=== PATIENT | female | born 1975 | race African-American/Black ===

== ENCOUNTER 2019-03-11 11:22 | Inpatient (IN) | payer MEDICAID ==
[2019-03-11] VITALS (8 sets, daily range): BP systolic 92–110; BP diastolic 38–76
[~2019-03-11] VITALS: Ht 160 cm; Wt 88.0 kg
[2019-03-11 14:22] LABS: MEAN CORPUSCULAR HEMOGLOBIN 35.4 pg (28.0-32.0); MEAN CORPUSCULAR VOLUME 105.9 fL (81.0-99.0); MEAN PLATELET VOLUME 7.7 fl (7.4-10.4); PLATELET 174 x1000/uL (130-400); RED BLOOD CELL COUNT 1.74 mill/uL (4.2-5.4); RED CELL DISTRIBUTION WIDTH 16.6 % (11.6-14.6)
[2019-03-11 14:23] LABS: CLARITY URINE TURBID (CLEAR); COLOR URINE ORANGE (YELLOW); KETONES URINE 1+ (NEGATIVE); LEUKOCYTE ESTERASE URINE 1+ (NEGATIVE); NITRITE URINE POSITIVE (NEGATIVE); OCCULT BLOOD URINE 2+ (NEGATIVE); PH URINE 5.5 (4.5-8.0); PROTEIN URINE 1+ (NEGATIVE); SPECIFIC GRAVITY URINE 1.021 (1.005-1.030)
[2019-03-11 14:24] LABS: HEMATOCRIT. 18.4 % (36.0-48.0); HEMOGLOBIN. 6.2 g/dL (12.0-16.0)
[2019-03-11 14:30] LABS: CHLORIDE 94 mEq/L (98-107)
[2019-03-11] MEDS ORDERED: OCTREOTIDE 1,000 MCG in SODIUM CHLORIDE 0.9% 100 ML IV ONE (14:30)
[2019-03-11] MEDS ORDERED: PANTOPRAZOLE SODIUM 40 MG/VIAL IV NR (14:30)
[2019-03-11] MEDS ORDERED: CEFTRIAXONE 1 G PREMIX 50 ML IV ONE (14:30)
[2019-03-11] MEDS ORDERED: OCTREOTIDE ACETATE 50 MCG/ML 1ML IV NR (14:30)
[2019-03-11] MEDS ORDERED: ONDANSETRON HCL 4MG/2ML INJ IV ONE (14:30)
[2019-03-11 14:31] LABS: INR 1.8; PARTIAL THROMBOPLASTIN TIME 30.8 sec (23.4-31.0); PROTHROMBIN TIME 18.3 sec (9.6-11.0)
[2019-03-11 14:33] LABS: ETHANOL BLOOD < 10 mg/dL; HCG SCREEN NEGATIVE
[2019-03-11 14:34] LABS: BG BASE EXCESS -3.8 mmol/L (-2.0-2.0); BG DEOXYHEMOGLOBIN 2.3 % (0.0-5.0); BG FRACTION INSPIRED OXYGEN 21; BG HCO3 ACT 19.4 mmol/L (22.0-26.0); BG METHEMOGLOBIN 0.1 % (0.0-1.5); BG OXYGEN SATURATION 97.7 % (92.0-98.5); BG OXYHEMOGLOBIN 96.6 % (94.0-97.0); BG PCO2 27.2 mmHg (35.0-45.0); BG PH 7.471 (7.350-7.450); BG PO2 112.7 mmHg (75.0-100.0); BG SAMPLE SITE RIGHT BRACHIAL; BG TOTAL HEMOGLOBIN 6.5 g/dL (12.0-18.0); BG VENT MODE ROOM AIR
[2019-03-11 14:43] LABS: NUCLEATED RED BLOOD CELLS 2 /100 WBC; PLATELET ESTIMATE NORMAL
[2019-03-11] MEDS ORDERED: OCTREOTIDE 1,000 MCG in SODIUM CHLORIDE 0.9% 98 ML IV ONE (14:45)
[2019-03-11 14:51] LABS: *AMPHETAMINES SCREEN URINE NEGATIVE (NEGATIVE); *BARBITURATES SCREEN URINE NEGATIVE (NEGATIVE); *BENZODIAZEPINES SCREEN URINE NEGATIVE (NEGATIVE); *COCAINE SCREEN URINE NEGATIVE (NEGATIVE); METHADONE URINE SCREEN NEGATIVE (NEGATIVE); OPIATES URINE SCREEN NEGATIVE (NEGATIVE)
[2019-03-11 14:52] LABS: CANNABINOID URINE SCREEN NEGATIVE (NEGATIVE); PHENCYCLIDINE URINE SCREEN NEGATIVE (NEGATIVE)
[2019-03-11] MEDS ORDERED: IPRATROPIUM/ALBUTEROL 0.5-3(2.5)MG/3ML NEB INH PRN (15:45)
[2019-03-11] MEDS ORDERED: DIPHENHYDRAMINE 50MG/ML VIAL IV PRN (15:45)
[2019-03-11] MEDS ORDERED: CEFTRIAXONE 1 G PREMIX 50 ML IV SCH (15:45)
[2019-03-11] MEDS ORDERED: DOCUSATE SODIUM 100MG CAPSULE PO PRN (15:45)
[2019-03-11] MEDS ORDERED: ACETAMINOPHEN 325MG TABLET PO PRN (15:45)
[2019-03-11] MEDS ORDERED: GUAIFENESIN 200MG/10ML SUGAR FREE UDC PO PRN (15:45)
[2019-03-11 16:28] LABS: PHOSPHORUS 2.9 mg/dL (2.5-4.9)
[2019-03-11] MEDS ORDERED: PHYTONADIONE 10MG/ML AMP IM ONE (16:30)
[2019-03-11] MEDS ORDERED: PROPOFOL 200MG/20ML VIAL IV ONE ×3 (16:57→18:04)
[2019-03-11] MEDS ORDERED: LIDOCAINE HCL/PF 1% 10 MG/ML 5ML VIAL ONE (16:58)
[2019-03-11] MEDS ORDERED: MIDAZOLAM HCL 2 MG/2 ML VIAL ONE (16:59)
[2019-03-11 17:01] LABS: VITAMIN B12 SERUM >2000 pg/mL pg/mL (211-911)
[2019-03-11 17:05] LABS: HEPATITIS B SURFACE ANTIGEN NEGATIVE
[2019-03-11] MEDS ORDERED: PHYTONADIONE 10MG/ML AMP IM NR (17:30)
[2019-03-11 17:35] LABS: HEPATITIS A AB IGM NEGATIVE (NEGATIVE)
[2019-03-11] MEDS ORDERED: ONDANSETRON HCL 4MG/2ML INJ ONE (17:38)
[2019-03-11] MEDS ORDERED: METOCLOPRAMIDE HCL 10MG/2ML VIAL ONE (17:39)
[2019-03-11] MEDS ORDERED: PHENYLEPHRINE HCL 10 MG/ML 1ML (IV VIAL) IV ONE ×2 (18:08→18:18)
[2019-03-11] MEDS ORDERED: ONDANSETRON HCL 4MG/2ML INJ IV PRN (20:00)
[2019-03-11] MEDS ORDERED: HYDROCODONE/ACETAMINOPHEN 5/325MG TABLET PO PRN (22:15)
[2019-03-11] MEDS ORDERED: BACL20TA MT (22:43)
[2019-03-11] MEDS ORDERED: GABA-531 MT (22:43)
[2019-03-11] MEDS: SUCRALFATE 1 G/10 ML UDC PO SCH (23:27)
[2019-03-12] VITALS (50 sets, daily range): BP systolic 83–125; BP diastolic 49–82
[2019-03-12] MEDS: SODIUM CHLORIDE 0.9% 1,000 ML IV SCH ×2 (00:41→11:58)
[2019-03-12] MEDS: MORPHINE SULFATE 2 MG/ML CPJ (NOT FOR IM USE) IV PRN ×3 (00:43→09:12)
[2019-03-12 00:58] LABS: CREATINE KINASE MB FRACTION 4.2 ng/mL (0.5-3.6)
[2019-03-12] MEDS: SUCRALFATE 1 G/10 ML UDC PO SCH ×3 (05:25→18:08)
[2019-03-12 05:48] LABS: HEMATOCRIT. 21.1 % (36.0-48.0); HEMOGLOBIN. 7.2 g/dL (12.0-16.0); MEAN CORPUSCULAR HEMOGLOBIN 34.1 pg (28.0-32.0); MEAN CORPUSCULAR VOLUME 99.5 fL (81.0-99.0); MEAN PLATELET VOLUME 8.4 fl (7.4-10.4); PLATELET 113 x1000/uL (130-400); RED BLOOD CELL COUNT 2.12 mill/uL (4.2-5.4); RED CELL DISTRIBUTION WIDTH 18.5 % (11.6-14.6)
[2019-03-12 06:19] LABS: CHLORIDE 101 mEq/L (98-107)
[2019-03-12 06:31] LABS: CREATINE KINASE 224 IU/L (26-192); CREATINE KINASE MB FRACTION 3.5 ng/mL (0.5-3.6); HDL CHOLESTEROL 13 mg/dL (40-59)
[2019-03-12 06:34] LABS: LDL CHOLESTEROL 46 mg/dL (5-100)
[2019-03-12 06:37] LABS: GAMMA GLUTAMYL TRANSPEPTIDASE 662 IU/L (7-32)
[2019-03-12] MEDS: MULTIVITAMINS,THER W-MINERALS TABLET PO SCH (11:34)
[2019-03-12] MEDS: CHLORDIAZEPOXIDE 5 MG CAPSULE PO SCH ×3 (11:34→21:12)
[2019-03-12] MEDS: FOLIC ACID 1MG TABLET PO SCH (11:35)
[2019-03-12] MEDS: THIAMINE HCL 100MG TABLET PO SCH (11:35)
[2019-03-12] MEDS ORDERED: MAGNESIUM 2 G PREMIX 50 ML IV SCH (12:00)
[2019-03-12] MEDS ORDERED: OCTREOTIDE 1,000 MCG in SODIUM CHLORIDE 0.9% 98 ML IV SCH (12:30)
[2019-03-12] MEDS: OCTREOTIDE 1,000 MCG in SODIUM CHLORIDE 0.9% 98 ML IV SCH (12:48)
[2019-03-12 13:17] LABS: HEMATOCRIT 26.2 % (36.0-48.0); HEMOGLOBIN 8.9 g/dL (12.0-16.0); MEAN CORPUSCULAR HEMOGLOBIN 33.1 pg (28.0-32.0); MEAN CORPUSCULAR VOLUME 97.2 fL (81.0-99.0); PLATELET 141 x1000/uL (130-400)
[2019-03-12 14:08] LABS: NUCLEATED RED BLOOD CELLS 4 /100 WBC; PLATELET ESTIMATE SLIGHTLY DECREASED
[2019-03-12] MEDS: BACLOFEN 20MG TABLET PO SCH ×2 (14:32→21:12)
[2019-03-12] MEDS: GABAPENTIN 300MG CAPSULE PO SCH ×2 (14:32→21:12)
[2019-03-12] MEDS: CEFTRIAXONE 1 G PREMIX 50 ML IV SCH (14:32)
[2019-03-12] MEDS: PANTOPRAZOLE SODIUM 40 MG/VIAL IV SCH ×2 (15:02→17:00)
[2019-03-13] VITALS (30 sets, daily range): BP systolic 101–162; BP diastolic 52–112
[2019-03-13] MEDS: SUCRALFATE 1 G/10 ML UDC PO SCH ×4 (00:32→18:13)
[2019-03-13] MEDS: SODIUM CHLORIDE 0.9% 1,000 ML IV SCH ×2 (05:16→15:00)
[2019-03-13] MEDS: CHLORDIAZEPOXIDE 5 MG CAPSULE PO SCH ×3 (06:00→20:36)
[2019-03-13] MEDS: GABAPENTIN 300MG CAPSULE PO SCH ×3 (06:00→20:36)
[2019-03-13] MEDS: BACLOFEN 20MG TABLET PO SCH ×3 (06:00→20:36)
[2019-03-13 06:18] LABS: HEMATOCRIT 24.4 % (36.0-48.0); HEMOGLOBIN 8.5 g/dL (12.0-16.0); MEAN CORPUSCULAR HEMOGLOBIN 33.5 pg (28.0-32.0); MEAN CORPUSCULAR VOLUME 96.7 fL (81.0-99.0); PLATELET 130 x1000/uL (130-400); RED BLOOD CELL COUNT 2.53 mill/uL (4.2-5.4); RED CELL DISTRIBUTION WIDTH 17.2 % (11.6-14.6)
[2019-03-13] MEDS: MULTIVITAMINS,THER W-MINERALS TABLET PO SCH (09:00)
[2019-03-13] MEDS: OCTREOTIDE 1,000 MCG in SODIUM CHLORIDE 0.9% 98 ML IV SCH (09:00)
[2019-03-13] MEDS: FOLIC ACID 1MG TABLET PO SCH (09:00)
[2019-03-13] MEDS: THIAMINE HCL 100MG TABLET PO SCH (09:00)
[2019-03-13] MEDS: PANTOPRAZOLE SODIUM 40 MG/VIAL IV SCH ×2 (09:00→17:57)
[2019-03-13] MEDS: CEFTRIAXONE 1 G PREMIX 50 ML IV SCH (14:00)
[2019-03-13] MEDS ORDERED: DEXTROSE 50% WATER 50ML SYRINGE IV PRN ×2 (19:30)
[2019-03-13] MEDS: BLOOD SUGAR DIAGNOSTIC STRIP TEST SCH (20:36)
[2019-03-13] MEDS: INSULIN LISPRO 100 UNITS/ML SUBCUT SCH (20:39)
[2019-03-14] VITALS (23 sets, daily range): BP systolic 94–160; BP diastolic 58–89
[2019-03-14 05:44] LABS: HEMATOCRIT. 28.4 % (36.0-48.0); HEMOGLOBIN. 9.5 g/dL (12.0-16.0); MEAN CORPUSCULAR HEMOGLOBIN 33.1 pg (28.0-32.0); MEAN CORPUSCULAR VOLUME 99.2 fL (81.0-99.0); MEAN PLATELET VOLUME 7.6 fl (7.4-10.4); PLATELET 145 x1000/uL (130-400); RED BLOOD CELL COUNT 2.86 mill/uL (4.2-5.4)
[2019-03-14] MEDS: BACLOFEN 20MG TABLET PO SCH ×3 (05:53→21:46)
[2019-03-14] MEDS: CHLORDIAZEPOXIDE 5 MG CAPSULE PO SCH ×3 (05:53→21:46)
[2019-03-14] MEDS: BLOOD SUGAR DIAGNOSTIC STRIP TEST SCH ×3 (05:53→17:17)
[2019-03-14] MEDS: SUCRALFATE 1 G/10 ML UDC PO SCH ×4 (05:53→18:58)
[2019-03-14] MEDS: GABAPENTIN 300MG CAPSULE PO SCH ×3 (05:53→21:46)
[2019-03-14 06:14] LABS: CHLORIDE 104 mEq/L (98-107)
[2019-03-14] MEDS: OCTREOTIDE 1,000 MCG in SODIUM CHLORIDE 0.9% 98 ML IV SCH (06:34)
[2019-03-14] MEDS: INSULIN LISPRO 100 UNITS/ML SUBCUT SCH ×5 (06:34→21:47)
[2019-03-14 09:26] LABS: PLATELET ESTIMATE NORMAL
[2019-03-14] MEDS ORDERED: POTASSIUM CHLORIDE 20MEQ TABLET SR PO SCH (09:45)
[2019-03-14] MEDS: THIAMINE HCL 100MG TABLET PO SCH (09:49)
[2019-03-14] MEDS: MULTIVITAMINS,THER W-MINERALS TABLET PO SCH (09:49)
[2019-03-14] MEDS: FOLIC ACID 1MG TABLET PO SCH (09:49)
[2019-03-14] MEDS: PANTOPRAZOLE SODIUM 40 MG/VIAL IV SCH ×2 (09:50→17:23)
[2019-03-14] MEDS: MORPHINE SULFATE 2 MG/ML CPJ (NOT FOR IM USE) IV PRN ×3 (10:46→11:35)
[2019-03-14] MEDS ORDERED: MORPHINE SULFATE 2 MG/ML CPJ (NOT FOR IM USE) IV PRN (12:15)
[2019-03-14] MEDS: SODIUM CHLORIDE 0.9% 1,000 ML IV SCH ×2 (14:00→18:39)
[2019-03-14] MEDS: LACTULOSE 20G/30ML UDC PO SCH ×2 (14:18→21:46)
[2019-03-14] MEDS: CEFTRIAXONE 1 G PREMIX 50 ML IV SCH (14:18)
[2019-03-15] VITALS (42 sets, daily range): BP systolic 98–153; BP diastolic 63–91
[2019-03-15] MEDS: SUCRALFATE 1 G/10 ML UDC PO SCH ×4 (00:24→17:19)
[2019-03-15] MEDS: BLOOD SUGAR DIAGNOSTIC STRIP TEST SCH ×5 (00:32→21:20)
[2019-03-15] MEDS: LACTULOSE 20G/30ML UDC PO SCH ×3 (05:29→21:40)
[2019-03-15] MEDS: GABAPENTIN 300MG CAPSULE PO SCH ×3 (05:30→21:41)
[2019-03-15] MEDS: BACLOFEN 20MG TABLET PO SCH ×3 (05:33→21:41)
[2019-03-15] MEDS: CHLORDIAZEPOXIDE 5 MG CAPSULE PO SCH ×3 (05:35→21:41)
[2019-03-15] MEDS: SODIUM CHLORIDE 0.9% 1,000 ML IV SCH ×2 (06:47→21:52)
[2019-03-15] MEDS: INSULIN LISPRO 100 UNITS/ML SUBCUT SCH ×4 (09:29→21:00)
[2019-03-15] MEDS: MULTIVITAMINS,THER W-MINERALS TABLET PO SCH (09:30)
[2019-03-15] MEDS: FOLIC ACID 1MG TABLET PO SCH (09:30)
[2019-03-15] MEDS: THIAMINE HCL 100MG TABLET PO SCH (09:30)
[2019-03-15] MEDS ORDERED: OCTREOTIDE ACETATE 50 MCG/ML 1ML IV NR (12:30)
[2019-03-15] MEDS: OCTREOTIDE 1,000 MCG in SODIUM CHLORIDE 0.9% 100 ML IV SCH ×2 (12:31→14:49)
[2019-03-15] MEDS: PANTOPRAZOLE SODIUM 40 MG/VIAL IV SCH ×2 (12:36→17:30)
[2019-03-15 12:39] LABS: HEMATOCRIT. 27.2 % (36.0-48.0); HEMOGLOBIN. 9.2 g/dL (12.0-16.0); MEAN CORPUSCULAR HEMOGLOBIN 33.8 pg (28.0-32.0); MEAN CORPUSCULAR VOLUME 99.4 fL (81.0-99.0); MEAN PLATELET VOLUME 7.1 fl (7.4-10.4); PLATELET 148 x1000/uL (130-400); RED BLOOD CELL COUNT 2.73 mill/uL (4.2-5.4); RED CELL DISTRIBUTION WIDTH 19.3 % (11.6-14.6)
[2019-03-15 12:48] LABS: INR 1.4; PARTIAL THROMBOPLASTIN TIME 28.8 sec (23.4-31.0); PROTHROMBIN TIME 14.7 sec (9.6-11.0)
[2019-03-15 12:51] LABS: CHLORIDE 107 mEq/L (98-107)
[2019-03-15 14:11] LABS: PLATELET ESTIMATE NORMAL
[2019-03-15] MEDS ORDERED: POTASSIUM CHLORIDE 20MEQ/PACKET PO NR (14:13)
[2019-03-15] MEDS ORDERED: METOCLOPRAMIDE HCL 10MG/2ML VIAL IV NR (14:15)
[2019-03-15] MEDS: CEFTRIAXONE 1 G PREMIX 50 ML IV SCH (14:48)
[2019-03-15] MEDS ORDERED: KCL 20MEQ/100ML PREMIX 200 ML IV NR (16:00)
[2019-03-15] MEDS ORDERED: LIDOCAINE HCL/PF 1% 10 MG/ML 5ML VIAL ONE (19:38)
[2019-03-15] MEDS ORDERED: MIDAZOLAM HCL 2 MG/2 ML VIAL ONE (19:38)
[2019-03-15] MEDS ORDERED: DIPHENHYDRAMINE 50MG/ML VIAL ONE (19:38)
[2019-03-15] MEDS ORDERED: FENTANYL CITRATE/PF 50MCG/ML 2ML VIAL ONE (19:38)
[2019-03-15] MEDS ORDERED: PROPOFOL 200MG/20ML VIAL IV ONE (19:39)
[2019-03-15 19:43] LABS: HEMATOCRIT 24.2 % (36.0-48.0); HEMOGLOBIN 8.2 g/dL (12.0-16.0)
[2019-03-15] MEDS: LORAZEPAM 2MG/ML CPJ IV PRN (22:46)
[2019-03-16] VITALS (55 sets, daily range): BP systolic 96–151; BP diastolic 19–87
[2019-03-16] MEDS: SUCRALFATE 1 G/10 ML UDC PO SCH ×4 (00:14→17:02)
[2019-03-16] MEDS: MAGNESIUM/ALUMINUM HYDROXIDE/SIMETHICONE 30ML UDC PO PRN ×3 (00:15→09:35)
[2019-03-16 01:30] LABS: HEMOGLOBIN 8.8 g/dL (12.0-16.0)
[2019-03-16 05:15] LABS: HEMATOCRIT. 25.4 % (36.0-48.0); HEMOGLOBIN. 8.6 g/dL (12.0-16.0); MEAN CORPUSCULAR HEMOGLOBIN 33.7 pg (28.0-32.0); MEAN CORPUSCULAR VOLUME 98.9 fL (81.0-99.0); PLATELET 147 x1000/uL (130-400); RED BLOOD CELL COUNT 2.57 mill/uL (4.2-5.4); RED CELL DISTRIBUTION WIDTH 20.8 % (11.6-14.6)
[2019-03-16 05:20] LABS: INR 1.5; PARTIAL THROMBOPLASTIN TIME 30.6 sec (23.4-31.0); PROTHROMBIN TIME 15.4 sec (9.6-11.0)
[2019-03-16 05:30] LABS: CHLORIDE 108 mEq/L (98-107)
[2019-03-16] MEDS: BACLOFEN 20MG TABLET PO SCH ×3 (06:21→21:30)
[2019-03-16] MEDS: CHLORDIAZEPOXIDE 5 MG CAPSULE PO SCH ×3 (06:21→21:30)
[2019-03-16] MEDS: LACTULOSE 20G/30ML UDC PO SCH ×3 (06:21→21:30)
[2019-03-16] MEDS: GABAPENTIN 300MG CAPSULE PO SCH ×3 (06:21→21:30)
[2019-03-16] MEDS: OCTREOTIDE 1,000 MCG in SODIUM CHLORIDE 0.9% 100 ML IV SCH (06:29)
[2019-03-16] MEDS: INSULIN LISPRO 100 UNITS/ML SUBCUT SCH ×4 (08:20→21:00)
[2019-03-16] MEDS: BLOOD SUGAR DIAGNOSTIC STRIP TEST SCH ×4 (08:24→21:00)
[2019-03-16] MEDS: PANTOPRAZOLE SODIUM 40 MG/VIAL IV SCH ×2 (08:25→17:01)
[2019-03-16] MEDS: FOLIC ACID 1MG TABLET PO SCH (08:25)
[2019-03-16] MEDS: MULTIVITAMINS,THER W-MINERALS TABLET PO SCH (08:26)
[2019-03-16] MEDS: THIAMINE HCL 100MG TABLET PO SCH (08:26)
[2019-03-16] MEDS: SODIUM CHLORIDE 0.9% 1,000 ML IV SCH ×2 (09:32→22:12)
[2019-03-16] MEDS: CEFTRIAXONE 1 G PREMIX 50 ML IV SCH (14:00)
[2019-03-16 14:14] LABS: PLATELET ESTIMATE NORMAL
[2019-03-16] MEDS: VENLAFAXINE HCL 50MG TABLET PO SCH (17:01)
[2019-03-16 21:34] LABS: HEMATOCRIT 28.5 % (36.0-48.0); HEMOGLOBIN 9.6 g/dL (12.0-16.0); MEAN CORPUSCULAR HEMOGLOBIN 34.3 pg (28.0-32.0); MEAN CORPUSCULAR VOLUME 101.4 fL (81.0-99.0); PLATELET 184 x1000/uL (130-400); RED BLOOD CELL COUNT 2.81 mill/uL (4.2-5.4); RED CELL DISTRIBUTION WIDTH 20.9 % (11.6-14.6)
[2019-03-16] MEDS: LORAZEPAM 2MG/ML CPJ IV PRN (21:56)
[2019-03-17] VITALS (26 sets, daily range): BP systolic 86–122; BP diastolic 59–91
[2019-03-17] MEDS: SUCRALFATE 1 G/10 ML UDC PO SCH ×5 (00:03→23:43)
[2019-03-17] MEDS: OCTREOTIDE 1,000 MCG in SODIUM CHLORIDE 0.9% 100 ML IV SCH ×2 (03:30→23:43)
[2019-03-17 04:59] LABS: HEMATOCRIT. 26.3 % (36.0-48.0); HEMOGLOBIN. 8.9 g/dL (12.0-16.0); MEAN CORPUSCULAR HEMOGLOBIN 34.1 pg (28.0-32.0); MEAN CORPUSCULAR VOLUME 100.5 fL (81.0-99.0); MEAN PLATELET VOLUME 7.2 fl (7.4-10.4); PLATELET 179 x1000/uL (130-400); RED BLOOD CELL COUNT 2.62 mill/uL (4.2-5.4); RED CELL DISTRIBUTION WIDTH 19.9 % (11.6-14.6)
[2019-03-17 05:04] LABS: CHLORIDE 107 mEq/L (98-107)
[2019-03-17 05:23] LABS: INR 1.4; PARTIAL THROMBOPLASTIN TIME 30.9 sec (23.4-31.0); PROTHROMBIN TIME 14.5 sec (9.6-11.0)
[2019-03-17] MEDS: LACTULOSE 20G/30ML UDC PO SCH ×3 (06:57→21:04)
[2019-03-17] MEDS: CHLORDIAZEPOXIDE 5 MG CAPSULE PO SCH (06:57)
[2019-03-17] MEDS: BACLOFEN 20MG TABLET PO SCH ×3 (06:57→21:04)
[2019-03-17] MEDS: GABAPENTIN 300MG CAPSULE PO SCH ×3 (06:57→21:04)
[2019-03-17 07:45] LABS: PLATELET ESTIMATE NORMAL
[2019-03-17] MEDS: INSULIN LISPRO 100 UNITS/ML SUBCUT SCH ×4 (08:20→21:10)
[2019-03-17] MEDS: BLOOD SUGAR DIAGNOSTIC STRIP TEST SCH ×4 (08:29→21:05)
[2019-03-17] MEDS: FOLIC ACID 1MG TABLET PO SCH (08:30)
[2019-03-17] MEDS: MAGNESIUM/ALUMINUM HYDROXIDE/SIMETHICONE 30ML UDC PO PRN (08:30)
[2019-03-17] MEDS: MULTIVITAMINS,THER W-MINERALS TABLET PO SCH (08:30)
[2019-03-17] MEDS: THIAMINE HCL 100MG TABLET PO SCH (08:30)
[2019-03-17] MEDS: PANTOPRAZOLE SODIUM 40 MG/VIAL IV SCH ×2 (08:30→17:35)
[2019-03-17] MEDS: VENLAFAXINE HCL 50MG TABLET PO SCH ×2 (08:30→17:35)
[2019-03-17] MEDS ORDERED: POTASSIUM CHLORIDE INJ 30 MEQ in DEXT 5% WATER 500 ML IV NR (11:00)
[2019-03-17] MEDS: SODIUM CHLORIDE 0.9% 1,000 ML IV SCH ×2 (11:51→23:43)
[2019-03-17] MEDS: CEFTRIAXONE 1 G PREMIX 50 ML IV SCH (13:30)
[2019-03-18] VITALS (24 sets, daily range): BP systolic 91–138; BP diastolic 54–100
[2019-03-18] MEDS: GABAPENTIN 300MG CAPSULE PO SCH ×3 (05:11→23:35)
[2019-03-18] MEDS: SUCRALFATE 1 G/10 ML UDC PO SCH ×4 (05:11→23:34)
[2019-03-18] MEDS: LACTULOSE 20G/30ML UDC PO SCH ×3 (05:11→23:35)
[2019-03-18] MEDS: BACLOFEN 20MG TABLET PO SCH ×3 (05:11→23:35)
[2019-03-18] MEDS: BLOOD SUGAR DIAGNOSTIC STRIP TEST SCH ×4 (08:10→21:00)
[2019-03-18] MEDS: INSULIN LISPRO 100 UNITS/ML SUBCUT SCH ×4 (08:20→23:36)
[2019-03-18] MEDS: PANTOPRAZOLE SODIUM 40 MG/VIAL IV SCH ×2 (08:55→17:59)
[2019-03-18] MEDS: FOLIC ACID 1MG TABLET PO SCH (08:56)
[2019-03-18] MEDS: MULTIVITAMINS,THER W-MINERALS TABLET PO SCH (08:56)
[2019-03-18] MEDS: THIAMINE HCL 100MG TABLET PO SCH (08:56)
[2019-03-18] MEDS: VENLAFAXINE HCL 50MG TABLET PO SCH ×2 (08:56→18:00)
[2019-03-18] MEDS: FUROSEMIDE 20MG TABLET PO SCH (11:17)
[2019-03-18] MEDS: CEFTRIAXONE 1 G PREMIX 50 ML IV SCH (15:00)
[2019-03-18] MEDS: SODIUM CHLORIDE 0.9% 1,000 ML IV SCH (15:02)
[2019-03-18] MEDS: PROPRANOLOL HCL 10MG TABLET PO SCH (21:00)
[2019-03-19] VITALS (7 sets, daily range): BP systolic 92–105; BP diastolic 53–69
[2019-03-19 05:58] LABS: BASOPHILS % 0.8 % (0.0-2.0); EOSINOPHILS % 1.3 % (0.0-5.0); HEMATOCRIT. 28.2 % (36.0-48.0); HEMOGLOBIN. 9.5 g/dL (12.0-16.0); LYMPHOCYTES % 20.6 % (20.0-50.0); MEAN CORPUSCULAR HEMOGLOBIN 33.6 pg (28.0-32.0); MEAN CORPUSCULAR VOLUME 99.7 fL (81.0-99.0); MEAN PLATELET VOLUME 7.5 fl (7.4-10.4); MONOCYTES % 13.1 % (2.0-8.0); NEUTROPHILS % 64.2 % (40.0-76.0); PLATELET 247 x1000/uL (130-400); RED BLOOD CELL COUNT 2.83 mill/uL (4.2-5.4); RED CELL DISTRIBUTION WIDTH 19.1 % (11.6-14.6)
[2019-03-19 06:10] LABS: CHLORIDE 108 mEq/L (98-107)
[2019-03-19] MEDS: SODIUM CHLORIDE 0.9% 1,000 ML IV SCH (06:44)
[2019-03-19] MEDS: BACLOFEN 20MG TABLET PO SCH ×2 (06:44→13:23)
[2019-03-19] MEDS: SUCRALFATE 1 G/10 ML UDC PO SCH ×2 (06:44→11:45)
[2019-03-19] MEDS: BLOOD SUGAR DIAGNOSTIC STRIP TEST SCH ×2 (06:44→12:25)
[2019-03-19] MEDS: GABAPENTIN 300MG CAPSULE PO SCH ×2 (06:44→13:23)
[2019-03-19] MEDS: LACTULOSE 20G/30ML UDC PO SCH ×2 (06:44→13:23)
[2019-03-19] MEDS: INSULIN LISPRO 100 UNITS/ML SUBCUT SCH ×2 (06:45→12:26)
[2019-03-19] MEDS: PROPRANOLOL HCL 10MG TABLET PO SCH (09:00)
[2019-03-19] MEDS: PANTOPRAZOLE SODIUM 40 MG/VIAL IV SCH (09:48)
[2019-03-19] MEDS: FOLIC ACID 1MG TABLET PO SCH (09:48)
[2019-03-19] MEDS: THIAMINE HCL 100MG TABLET PO SCH (09:49)
[2019-03-19] MEDS: FUROSEMIDE 20MG TABLET PO SCH (09:49)
[2019-03-19] MEDS: MULTIVITAMINS,THER W-MINERALS TABLET PO SCH (09:49)
[2019-03-19] MEDS ORDERED: POTASSIUM CHLORIDE 20MEQ TABLET SR PO NR (11:00)
[2019-03-19] MEDS: VENLAFAXINE HCL 50MG TABLET PO SCH (11:45)
== END 2019-03-19 17:05 | disposition home or self-care (01) | DRG 720 ==
LOC: ER 12:02 → MICUSO 14:44 → EDBEDREQ 14:50 → EDBEDREQTM 14:50 → ENRESERV 17:46 → 5EST 03-14 17:00 → CVICU 03-15 14:00 → 5WST 03-18 23:53
PROVIDERS: ADMIT Internal Medicine; ATTEND Internal Medicine
PROC: 30233N1 Transfusion of Nonautologous Red Blood Cells into Peripheral Vein, Percutaneous Approach (ICD-10-PCS; principal; 2019-03-11)
PROC: 06L38CZ Occlusion of Esophageal Vein with Extraluminal Device, Via Natural or Artificial Opening Endoscopic (ICD-10-PCS; 2019-03-11)
PROC: 0DCA8ZZ Extirpation of Matter from Jejunum, Via Natural or Artificial Opening Endoscopic (ICD-10-PCS; 2019-03-11)
PROC: 06L38CZ Occlusion of Esophageal Vein with Extraluminal Device, Via Natural or Artificial Opening Endoscopic (ICD-10-PCS; 2019-03-15)
DX: A41.9 Sepsis, unspecified organism (principal); I85.11 Secondary esophageal varices with bleeding; G92 Toxic encephalopathy; K92.0 Hematemesis; E11.42 Type 2 diabetes mellitus with diabetic polyneuropathy; D68.4 Acquired coagulation factor deficiency; D62 Acute posthemorrhagic anemia; E87.2 Acidosis; E66.01 Morbid (severe) obesity due to excess calories; F10.10 Alcohol abuse, uncomplicated; E83.42 Hypomagnesemia; K72.90 Hepatic failure, unspecified without coma; N39.0 Urinary tract infection, site not specified; K70.30 Alcoholic cirrhosis of liver without ascites; E87.6 Hypokalemia; G89.29 Other chronic pain; I10 Essential (primary) hypertension; K64.9 Unspecified hemorrhoids; T45.2X6A Underdosing of vitamins, initial encounter; W18.39XA Other fall on same level, initial encounter; Y93.89 Activity, other specified; Y99.8 Other external cause status; Y92.89 Other specified places as the place of occurrence of the external cause; Z90.49 Acquired absence of other specified parts of digestive tract; Z91.19 Patient's noncompliance with other medical treatment and regimen; Z98.84 Bariatric surgery status; Z68.34 Body mass index [BMI] 34.0-34.9, adult; Z88.8 Allergy status to other drugs, medicaments and biological substances
CPT/HCPCS: 36415; 36600; 71045; 76700; 78278; 80048; 80061; 80076; 80305; 80320; 82140; 82248; 82375; 82550; 82553; 82607; 82805; 82962; 82977; 83036; 83735; 83880; 84100; 84132; 84134; 84145; 84425; 84443; 84484; 84703; 85014; 85018; 85027; 86705; 86709; 86803; 86850; 86900; 86920; 87340; 93005; 93970; 97116; 97162; 97166; 97168; 97530; 99291; A9560; C1893; C9113; J0696; J1200; J1815; J2060; J2250; J2270; J2354; J2370; J2405; J2704; J2765; J3010; J3430; J3475; J3480; J3490; J7050; J7060; P9016; P9021; A4315; G0480

== ENCOUNTER 2019-05-31 09:12 | Day surgery (SDC) | payer MEDICAID ==
[~2019-05-31] VITALS: Ht 160 cm; Wt 72.1 kg
[~2019-05-31 09:12] MED LIST: BACL20TA MT; GABA-531 MT
[2019-05-31] MEDS ORDERED: SPIR25TA PO (10:11)
[2019-05-31] MEDS ORDERED: SODIUM CHLORIDE 0.9% 1,000 ML IV SCH (10:15)
[2019-05-31] MEDS ORDERED: VENL75CA56 PO (10:28)
[2019-05-31] MEDS ORDERED: SIMV20TA2 PO (10:28)
[2019-05-31] MEDS ORDERED: FOLI-43 PO (10:28)
[2019-05-31] MEDS ORDERED: FERR325T6 PO (10:28)
[2019-05-31] MEDS ORDERED: LACT10SO PO (10:28)
[2019-05-31] MEDS ORDERED: METF500T3 PO (10:28)
[2019-05-31] MEDS ORDERED: MULT-1146 PO (10:28)
[2019-05-31] MEDS ORDERED: ALLO300T74 PO (10:28)
[2019-05-31] MEDS ORDERED: CHOL20004 PO (10:28)
[2019-05-31] MEDS ORDERED: VITA-137 PO (10:28)
[2019-05-31] MEDS ORDERED: ABIL10 PO (10:28)
[2019-05-31] MEDS ORDERED: ASPI-1158 PO (10:28)
[2019-05-31] MEDS ORDERED: AMIT-187 GT (10:28)
[2019-05-31 10:37] LABS: BASOPHILS % 0.7 % (0.0-2.0); EOSINOPHILS % 3.9 % (0.0-5.0); HEMATOCRIT. 33.9 % (36.0-48.0); HEMOGLOBIN. 11.1 g/dL (12.0-16.0); LYMPHOCYTES % 43.8 % (20.0-50.0); MEAN CORPUSCULAR HEMOGLOBIN 29.4 pg (28.0-32.0); MEAN CORPUSCULAR VOLUME 89.7 fL (81.0-99.0); MEAN PLATELET VOLUME 7.5 fl (7.4-10.4); MONOCYTES % 11.7 % (2.0-8.0); NEUTROPHILS % 39.9 % (40.0-76.0); PLATELET 180 x1000/uL (130-400); RED BLOOD CELL COUNT 3.77 mill/uL (4.2-5.4); RED CELL DISTRIBUTION WIDTH 16.3 % (11.6-14.6)
[2019-05-31 10:44] LABS: CHLORIDE 105 mEq/L (98-107)
[2019-05-31 10:46] LABS: INR 1.3; PARTIAL THROMBOPLASTIN TIME 31.8 sec (23.4-31.0); PROTHROMBIN TIME 13.1 sec (9.6-11.0)
[2019-05-31] MEDS ORDERED: [UNRECOGNIZED DRUG - OTHER] PO (10:47)
[2019-05-31] MEDS ORDERED: [UNRECOGNIZED DRUG - OTHER] PO (10:47)
[2019-05-31 10:50] LABS: HCG SCREEN NEGATIVE
[2019-05-31] MEDS ORDERED: PROPOFOL 200MG/20ML VIAL IV ONE (11:08)
[2019-05-31] MEDS ORDERED: MIDAZOLAM HCL 5 MG/5 ML VIAL ONE (11:08)
[2019-05-31] MEDS ORDERED: SIMETHICONE 40 MG/0.6 ML 30ML ONE (11:08)
[2019-05-31] MEDS ORDERED: LIDOCAINE HCL/PF 1% 10 MG/ML 5ML VIAL ONE (11:09)
== END 2019-05-31 15:00 | disposition home or self-care (01) ==
LOC: OR 09:12
PROVIDERS: ATTEND Internal Medicine Gastroenterology
DX: I85.00 Esophageal varices without bleeding (principal); K70.30 Alcoholic cirrhosis of liver without ascites; K62.3 Rectal prolapse; K64.8 Other hemorrhoids; K57.30 Diverticulosis of large intestine without perforation or abscess without bleeding; F10.10 Alcohol abuse, uncomplicated; Z98.84 Bariatric surgery status; Z90.49 Acquired absence of other specified parts of digestive tract; I10 Essential (primary) hypertension; E11.40 Type 2 diabetes mellitus with diabetic neuropathy, unspecified
CPT/HCPCS: 36415; 43244; 45378; 80048; 82962; 84703; 85025; 85610; 85730; 93005; J2250; J2704; J3490

== ENCOUNTER 2019-06-22 21:13 | Inpatient (IN) | payer MEDICAID ==
[~2019-06-22] VITALS: Ht 160 cm; Wt 37.2 kg
[~2019-06-22 21:13] MED LIST changes: +ABIL10 PO; +ALLO300T74 PO; +AMIT-187 GT; +ASPI-1158 PO; +CHOL20004 PO; +FERR325T6 PO; +FOLI-43 PO; +LACT10SO PO; +METF500T3 PO; +MULT-1146 PO; +SIMV20TA2 PO; +SPIR25TA PO; +VENL75CA56 PO; +VITA-137 PO; +[UNRECOGNIZED DRUG - OTHER] PO; +[UNRECOGNIZED DRUG - OTHER] PO
[2019-06-22] MEDS ORDERED: OCTREOTIDE ACETATE 50 MCG/ML 1ML IV STA (21:34)
[2019-06-22] MEDS ORDERED: ONDANSETRON HCL 4MG/2ML INJ IV STA (21:34)
[2019-06-22] MEDS ORDERED: SODIUM CHLORIDE 0.9% 1,000 ML IV ONE (21:34)
[2019-06-22] MEDS ORDERED: PANTOPRAZOLE 80 MG in SODIUM CHLORIDE 0.9% 100 ML IV STA (21:34)
[2019-06-22] MEDS ORDERED: OCTREOTIDE 1,000 MCG in SODIUM CHLORIDE 0.9% 100 ML IV STA (21:34)
[2019-06-22] MEDS ORDERED: PANTOPRAZOLE SODIUM 40 MG/VIAL IV STA (21:34)
[2019-06-22 23:05] LABS: BASOPHILS % 0.2 % (0.0-2.0); EOSINOPHILS % 0.8 % (0.0-5.0); HEMATOCRIT. 24.9 % (36.0-48.0); HEMOGLOBIN. 8.4 g/dL (12.0-16.0); LYMPHOCYTES % 17.4 % (20.0-50.0); MEAN CORPUSCULAR VOLUME 89.2 fL (81.0-99.0); MEAN PLATELET VOLUME 7.9 fl (7.4-10.4); MONOCYTES % 10.6 % (2.0-8.0); PLATELET 144 x1000/uL (130-400); RED BLOOD CELL COUNT 2.79 mill/uL (4.2-5.4); RED CELL DISTRIBUTION WIDTH 15.7 % (11.6-14.6)
[2019-06-22 23:09] LABS: CHLORIDE 106 mEq/L (98-107)
[2019-06-22 23:10] LABS: INR 1.3; PROTHROMBIN TIME 13.6 sec (9.6-11.0)
[2019-06-22 23:18] LABS: HCG SCREEN NEGATIVE
[2019-06-23] VITALS (7 sets, daily range): BP systolic 97–111; BP diastolic 60–69
[2019-06-23] MEDS ORDERED: SODIUM CHLORIDE 0.9% 1,000 ML IV ONE (01:30)
[2019-06-23] MEDS ORDERED: FAMOTIDINE 20MG/2ML VIAL IV ONE (01:30)
[2019-06-23 01:58] LABS: HEMATOCRIT 24.7 % (36.0-48.0); HEMOGLOBIN 8.1 g/dL (12.0-16.0)
[2019-06-23] MEDS ORDERED: METF-416 MT (04:17)
[2019-06-23] MEDS ORDERED: DEXTROSE 50% WATER 50ML SYRINGE IV PRN (05:30)
[2019-06-23] MEDS: BLOOD SUGAR DIAGNOSTIC STRIP TEST SCH ×4 (06:21→20:02)
[2019-06-23] MEDS: DEXT 5%/0.45% NACL 1000ML 1,000 ML IV SCH ×2 (06:27→19:03)
[2019-06-23] MEDS ORDERED: DOCUSATE SODIUM 100MG CAPSULE PO PRN (06:30)
[2019-06-23] MEDS ORDERED: CLONIDINE 0.1MG TABLET PO PRN (06:30)
[2019-06-23] MEDS ORDERED: GUAIFENESIN 200MG/10ML SUGAR FREE UDC PO PRN (06:30)
[2019-06-23] MEDS ORDERED: IPRATROPIUM/ALBUTEROL 0.5-3(2.5)MG/3ML NEB HHN PRN (06:30)
[2019-06-23] MEDS ORDERED: MAGNESIUM/ALUMINUM HYDROXIDE/SIMETHICONE 30ML UDC PO PRN (06:30)
[2019-06-23] MEDS ORDERED: ONDANSETRON HCL 4MG/2ML INJ IV PRN (06:30)
[2019-06-23] MEDS: INSULIN LISPRO 100 UNITS/ML SUBCUT SCH ×4 (07:04→20:17)
[2019-06-23 11:25] LABS: CHLORIDE 107 mEq/L (98-107)
[2019-06-23 11:30] LABS: TOTAL IRON BINDING CAPACITY 357 ug/dL (250-450)
[2019-06-23 11:58] LABS: VITAMIN B12 SERUM 1370 pg/mL (211-911)
[2019-06-23 12:01] LABS: BASOPHILS % 0.7 % (0.0-2.0); EOSINOPHILS % 1.9 % (0.0-5.0); HEMATOCRIT. 26.5 % (36.0-48.0); HEMOGLOBIN. 8.8 g/dL (12.0-16.0); LYMPHOCYTES % 34.1 % (20.0-50.0); MEAN CORPUSCULAR HEMOGLOBIN 29.6 pg (28.0-32.0); MEAN CORPUSCULAR VOLUME 89.2 fL (81.0-99.0); MEAN PLATELET VOLUME 8.2 fl (7.4-10.4); MONOCYTES % 11.2 % (2.0-8.0); NEUTROPHILS % 52.1 % (40.0-76.0); PLATELET 142 x1000/uL (130-400); RED BLOOD CELL COUNT 2.98 mill/uL (4.2-5.4)
[2019-06-23 12:02] LABS: FOLIC ACID (FOLATE) SERUM > 20.00 ng/mL (>5.38)
[2019-06-23] MEDS: SODIUM CHLORIDE 0.9% INJ 3ML FLUSH IVF SCH ×2 (14:40→21:15)
[2019-06-23 18:14] LABS: CREATINE KINASE 106 IU/L (26-192)
[2019-06-23 18:15] LABS: CREATINE KINASE MB FRACTION 1.4 ng/mL (0.5-3.6)
[2019-06-23] MEDS: FAMOTIDINE 20MG/2ML VIAL IV SCH (20:08)
[2019-06-23] MEDS: AMITRIPTYLINE 25MG TABLET PO SCH (20:08)
[2019-06-23] MEDS: GABAPENTIN 300MG CAPSULE PO SCH (20:08)
[2019-06-24 00:45] LABS: CREATINE KINASE 103 IU/L (26-192)
[2019-06-24 00:46] LABS: CREATINE KINASE MB FRACTION 1.1 ng/mL (0.5-3.6)
[2019-06-24 02:37] VITALS: BP 107/70
[2019-06-24 04:00] VITALS: BP 96/59
[2019-06-24] MEDS: BLOOD SUGAR DIAGNOSTIC STRIP TEST SCH ×4 (05:57→20:47)
[2019-06-24] MEDS: SODIUM CHLORIDE 0.9% INJ 3ML FLUSH IVF SCH ×3 (06:32→20:47)
[2019-06-24] MEDS: INSULIN LISPRO 100 UNITS/ML SUBCUT SCH ×4 (06:34→20:47)
[2019-06-24 07:25] LABS: CHLORIDE 105 mEq/L (98-107)
[2019-06-24 07:30] LABS: BASOPHILS % 0.5 % (0.0-2.0); EOSINOPHILS % 2.5 % (0.0-5.0); HEMATOCRIT. 26.5 % (36.0-48.0); HEMOGLOBIN. 8.8 g/dL (12.0-16.0); LYMPHOCYTES % 28.4 % (20.0-50.0); MEAN CORPUSCULAR HEMOGLOBIN 29.8 pg (28.0-32.0); MEAN CORPUSCULAR VOLUME 89.9 fL (81.0-99.0); MEAN PLATELET VOLUME 7.9 fl (7.4-10.4); MONOCYTES % 11.6 % (2.0-8.0); PLATELET 163 x1000/uL (130-400); RED BLOOD CELL COUNT 2.95 mill/uL (4.2-5.4); RED CELL DISTRIBUTION WIDTH 16.2 % (11.6-14.6)
[2019-06-24 08:00] VITALS: BP 120/74
[2019-06-24] MEDS: FAMOTIDINE 20MG/2ML VIAL IV SCH ×2 (08:19→20:46)
[2019-06-24] MEDS: GABAPENTIN 300MG CAPSULE PO SCH ×3 (08:19→17:00)
[2019-06-24] MEDS: DEXT 5%/0.45% NACL 1000ML 1,000 ML IV SCH (08:20)
[2019-06-24 13:52] VITALS: BP 125/79
[2019-06-24 15:56] LABS: HCG SCREEN NEGATIVE
[2019-06-24 16:00] VITALS: BP 128/81
[2019-06-24] MEDS ORDERED: FENTANYL CITRATE/PF 50MCG/ML 2ML VIAL ONE (18:41)
[2019-06-24] MEDS ORDERED: MIDAZOLAM HCL 5 MG/5 ML VIAL ONE (18:41)
[2019-06-24] MEDS ORDERED: LACTULOSE 20G/30ML UDC PO SCH (18:45)
[2019-06-24 20:00] VITALS: BP 149/93
[2019-06-24] MEDS: AMITRIPTYLINE 25MG TABLET PO SCH (20:46)
[2019-06-24 20:57] LABS: HEMATOCRIT 25.9 % (36.0-48.0); HEMOGLOBIN 8.7 g/dL (12.0-16.0); MEAN CORPUSCULAR HEMOGLOBIN 30.4 pg (28.0-32.0); PLATELET 160 x1000/uL (130-400); RED BLOOD CELL COUNT 2.88 mill/uL (4.2-5.4); RED CELL DISTRIBUTION WIDTH 16.4 % (11.6-14.6)
[2019-06-24 21:03] LABS: CHLORIDE 109 mEq/L (98-107)
[2019-06-24] MEDS ORDERED: POTASSIUM CHLORIDE 20MEQ TABLET SR PO SCH (22:00)
[2019-06-25] VITALS (15 sets, daily range): BP systolic 123–153; BP diastolic 78–123
[2019-06-25] MEDS: LORAZEPAM 2MG/ML CPJ IV PRN ×2 (03:15→22:56)
[2019-06-25] MEDS: DEXT 5%/0.45% NACL 1000ML 1,000 ML IV SCH ×3 (04:02→15:10)
[2019-06-25 05:46] LABS: BASOPHILS % 0.6 % (0.0-2.0); EOSINOPHILS % 0.9 % (0.0-5.0); HEMATOCRIT. 28.6 % (36.0-48.0); HEMOGLOBIN. 9.5 g/dL (12.0-16.0); LYMPHOCYTES % 23.4 % (20.0-50.0); MEAN CORPUSCULAR HEMOGLOBIN 29.8 pg (28.0-32.0); MEAN CORPUSCULAR VOLUME 89.8 fL (81.0-99.0); MEAN PLATELET VOLUME 7.5 fl (7.4-10.4); MONOCYTES % 10.8 % (2.0-8.0); NEUTROPHILS % 64.3 % (40.0-76.0); PLATELET 166 x1000/uL (130-400); RED BLOOD CELL COUNT 3.18 mill/uL (4.2-5.4); RED CELL DISTRIBUTION WIDTH 16.4 % (11.6-14.6)
[2019-06-25 06:02] LABS: CHLORIDE 108 mEq/L (98-107)
[2019-06-25] MEDS: BLOOD SUGAR DIAGNOSTIC STRIP TEST SCH ×4 (06:45→21:05)
[2019-06-25] MEDS: SODIUM CHLORIDE 0.9% INJ 3ML FLUSH IVF SCH ×3 (06:45→21:40)
[2019-06-25] MEDS: INSULIN LISPRO 100 UNITS/ML SUBCUT SCH ×4 (06:46→21:08)
[2019-06-25] MEDS: GABAPENTIN 300MG CAPSULE PO SCH ×3 (09:29→17:32)
[2019-06-25] MEDS: FAMOTIDINE 20MG/2ML VIAL IV SCH ×2 (09:29→21:40)
[2019-06-25] MEDS: LACTULOSE 20G/30ML UDC PO SCH ×4 (09:29→20:43)
[2019-06-25] MEDS: MORPHINE SULFATE 2 MG/ML CPJ (NOT FOR IM USE) IV PRN ×2 (11:10→19:41)
[2019-06-25 18:37] LABS: BG CARBOXYHEMOGLOBIN 0.3 % (0.5-1.5); BG DEOXYHEMOGLOBIN 4.2 % (0.0-5.0); BG FRACTION INSPIRED OXYGEN 21; BG HCO3 ACT 19.7 mmol/L (22.0-26.0); BG METHEMOGLOBIN 0.3 % (0.0-1.5); BG OXYGEN SATURATION 95.8 % (92.0-98.5); BG OXYHEMOGLOBIN 95.2 % (94.0-97.0); BG PCO2 24.1 mmHg (35.0-45.0); BG PH 7.531 (7.350-7.450); BG SAMPLE SITE RIGHT RADIAL; BG TOTAL HEMOGLOBIN 9.6 g/dL (12.0-18.0); BG VENT MODE ROOM AIR
[2019-06-25] MEDS: METOPROLOL TARTRATE 25MG TABLET PO SCH (20:43)
[2019-06-25] MEDS ORDERED: LORAZEPAM 2MG/ML CPJ IV PRN (23:00)
[2019-06-25 23:58] LABS: BASOPHILS % 0.3 % (0.0-2.0); EOSINOPHILS % 0.9 % (0.0-5.0); HEMATOCRIT. 27.7 % (36.0-48.0); HEMOGLOBIN. 9.3 g/dL (12.0-16.0); LYMPHOCYTES % 12.7 % (20.0-50.0); MEAN CORPUSCULAR HEMOGLOBIN 30.2 pg (28.0-32.0); MONOCYTES % 9.9 % (2.0-8.0); NEUTROPHILS % 76.2 % (40.0-76.0); PLATELET 184 x1000/uL (130-400); RED BLOOD CELL COUNT 3.08 mill/uL (4.2-5.4)
[2019-06-26] VITALS (70 sets, daily range): BP systolic 86–183; BP diastolic 50–148
[2019-06-26 00:04] LABS: CHLORIDE 110 mEq/L (98-107)
[2019-06-26] MEDS: LACTULOSE 20G/30ML UDC PO SCH ×6 (00:09→21:25)
[2019-06-26] MEDS: DEXT 5%/0.45% NACL 1000ML 1,000 ML IV SCH ×2 (02:29→17:30)
[2019-06-26] MEDS ORDERED: MAGNESIUM 2 G PREMIX 50 ML IV ONE (04:00)
[2019-06-26] MEDS ORDERED: POTASSIUM CHLORIDE INJ 40 MEQ in DEXT 5% WATER 250 ML IV SCH (05:00)
[2019-06-26] MEDS: SODIUM CHLORIDE 0.9% INJ 3ML FLUSH IVF SCH ×3 (06:00→21:28)
[2019-06-26] MEDS ORDERED: PHENYTOIN 100 MG/4 ML UDC NG SCH (07:30)
[2019-06-26] MEDS ORDERED: LORAZEPAM 2MG/ML CPJ IV SCH (07:30)
[2019-06-26] MEDS: BLOOD SUGAR DIAGNOSTIC STRIP TEST SCH ×3 (08:08→17:14)
[2019-06-26] MEDS: FAMOTIDINE 20MG/2ML VIAL IV SCH ×2 (08:11→21:29)
[2019-06-26] MEDS: METOPROLOL TARTRATE 25MG TABLET PO SCH ×2 (08:12→21:00)
[2019-06-26] MEDS: ACETAMINOPHEN 325MG TABLET PO PRN (08:16)
[2019-06-26] MEDS: INSULIN LISPRO 100 UNITS/ML SUBCUT SCH ×3 (08:32→17:31)
[2019-06-26] MEDS: LORAZEPAM 2MG/ML CPJ IV PRN ×2 (09:04→14:41)
[2019-06-26] MEDS ORDERED: AMITRIPTYLINE 25MG TABLET PO NR (09:30)
[2019-06-26 09:34] LABS: BASOPHILS % 0.3 % (0.0-2.0); HEMATOCRIT. 31.7 % (36.0-48.0); HEMOGLOBIN. 10.5 g/dL (12.0-16.0); LYMPHOCYTES % 7.1 % (20.0-50.0); MEAN CORPUSCULAR HEMOGLOBIN 29.7 pg (28.0-32.0); MEAN CORPUSCULAR VOLUME 89.8 fL (81.0-99.0); MEAN PLATELET VOLUME 7.5 fl (7.4-10.4); MONOCYTES % 10.1 % (2.0-8.0); NEUTROPHILS % 82.5 % (40.0-76.0); PLATELET 246 x1000/uL (130-400); RED BLOOD CELL COUNT 3.53 mill/uL (4.2-5.4); RED CELL DISTRIBUTION WIDTH 16.3 % (11.6-14.6)
[2019-06-26 09:37] LABS: CHLORIDE 110 mEq/L (98-107)
[2019-06-26] MEDS ORDERED: ETOMIDATE 2MG/ML 10ML VIAL IV ONE (09:45)
[2019-06-26] MEDS ORDERED: VECURONIUM BROMIDE 10 MG/VIAL IV ONE (09:45)
[2019-06-26] MEDS ORDERED: SODIUM CHLORIDE 0.9% 10ML VIAL ONE (09:45)
[2019-06-26] MEDS ORDERED: CHLORDIAZEPOXIDE 25MG CAPSULE PO SCH (10:00)
[2019-06-26] MEDS: LEVETIRACETAM 500 MG in SODIUM CHLORIDE 0.9% 100 ML IV SCH ×2 (10:37→21:28)
[2019-06-26] MEDS: FOLIC ACID 1MG TABLET PO SCH (10:38)
[2019-06-26] MEDS: THIAMINE HCL 100MG TABLET PO SCH (10:38)
[2019-06-26 10:57] LABS: BG BASE EXCESS -6.7 mmol/L (-2.0-2.0); BG DEOXYHEMOGLOBIN 1.4 % (0.0-5.0); BG FRACTION INSPIRED OXYGEN 50; BG HCO3 ACT 17.6 mmol/L (22.0-26.0); BG METHEMOGLOBIN 0.3 % (0.0-1.5); BG OXYGEN SATURATION 98.6 % (92.0-98.5); BG OXYHEMOGLOBIN 98.3 % (94.0-97.0); BG PH 7.373 (7.350-7.450); BG PO2 163.5 mmHg (75.0-100.0); BG SAMPLE SITE RIGHT RADIAL; BG TIDAL VOLUME(mL) 500 mL; BG TOTAL HEMOGLOBIN 9.9 g/dL (12.0-18.0); BG VENT MODE VENT - A/C; BG VENT RATE 16 set
[2019-06-26 11:28] LABS: CLARITY URINE CLEAR (CLEAR); COLOR URINE YELLOW (YELLOW); KETONES URINE 2+ (NEGATIVE); LEUKOCYTE ESTERASE URINE NEGATIVE (NEGATIVE); NITRITE URINE NEGATIVE (NEGATIVE); OCCULT BLOOD URINE 3+ (NEGATIVE); PROTEIN URINE TRACE (NEGATIVE); SPECIFIC GRAVITY URINE 1.032 (1.005-1.030)
[2019-06-26] MEDS ORDERED: IPRATROPIUM/ALBUTEROL 0.5-3(2.5)MG/3ML NEB HHN PRN (11:30)
[2019-06-26] MEDS: PROPOFOL 10MG/ML 100ML 100 ML IV PRN ×2 (11:45→21:26)
[2019-06-26 12:03] LABS: *AMPHETAMINES SCREEN URINE NEGATIVE (NEGATIVE); *BARBITURATES SCREEN URINE NEGATIVE (NEGATIVE); *BENZODIAZEPINES SCREEN URINE NEGATIVE (NEGATIVE)
[2019-06-26 12:04] LABS: *COCAINE SCREEN URINE NEGATIVE (NEGATIVE); CANNABINOID URINE SCREEN NEGATIVE (NEGATIVE); METHADONE URINE SCREEN NEGATIVE (NEGATIVE); OPIATES URINE SCREEN NEGATIVE (NEGATIVE); PHENCYCLIDINE URINE SCREEN NEGATIVE (NEGATIVE)
[2019-06-26] MEDS ORDERED: LIDOCAINE HCL 1% 20ML VIAL (Pyxis) INJ ONE (12:37)
[2019-06-26] MEDS ORDERED: SODIUM BICARBONATE 4% (2.4MEQ) 5ML VIAL IV ONE (12:37)
[2019-06-26] MEDS: IPRATROPIUM/ALBUTEROL 0.5-3(2.5)MG/3ML NEB HHN SCH ×2 (14:39→19:52)
[2019-06-26 14:56] LABS: *AMPHETAMINES SCREEN URINE NEGATIVE (NEGATIVE); *BARBITURATES SCREEN URINE NEGATIVE (NEGATIVE)
[2019-06-26 14:57] LABS: *BENZODIAZEPINES SCREEN URINE NEGATIVE (NEGATIVE); *COCAINE SCREEN URINE NEGATIVE (NEGATIVE); CANNABINOID URINE SCREEN NEGATIVE (NEGATIVE); METHADONE URINE SCREEN NEGATIVE (NEGATIVE); OPIATES URINE SCREEN NEGATIVE (NEGATIVE); PHENCYCLIDINE URINE SCREEN NEGATIVE (NEGATIVE)
[2019-06-26] MEDS ORDERED: AMITRIPTYLINE 25MG TABLET PO SCH (21:00)
[2019-06-27] VITALS (39 sets, daily range): BP systolic 87–148; BP diastolic 50–102
[2019-06-27] MEDS: INSULIN LISPRO 100 UNITS/ML SUBCUT SCH ×4 (01:04→17:47)
[2019-06-27] MEDS: LACTULOSE 20G/30ML UDC PO SCH ×6 (01:06→21:05)
[2019-06-27] MEDS: IPRATROPIUM/ALBUTEROL 0.5-3(2.5)MG/3ML NEB HHN SCH ×4 (01:44→20:09)
[2019-06-27] MEDS: PROPOFOL 10MG/ML 100ML 100 ML IV PRN ×3 (03:24→18:25)
[2019-06-27] MEDS: DEXT 5%/0.45% NACL 1000ML 1,000 ML IV SCH ×3 (03:25→21:06)
[2019-06-27] MEDS: LORAZEPAM 2MG/ML CPJ IV PRN (03:44)
[2019-06-27 05:15] LABS: BASOPHILS % 0.8 % (0.0-2.0); EOSINOPHILS % 2.1 % (0.0-5.0); HEMATOCRIT. 25.8 % (36.0-48.0); HEMOGLOBIN. 8.7 g/dL (12.0-16.0); LYMPHOCYTES % 20.6 % (20.0-50.0); MEAN CORPUSCULAR HEMOGLOBIN 30.1 pg (28.0-32.0); MEAN CORPUSCULAR VOLUME 89.6 fL (81.0-99.0); MEAN PLATELET VOLUME 7.5 fl (7.4-10.4); MONOCYTES % 12.1 % (2.0-8.0); NEUTROPHILS % 64.4 % (40.0-76.0); PLATELET 191 x1000/uL (130-400); RED BLOOD CELL COUNT 2.88 mill/uL (4.2-5.4); RED CELL DISTRIBUTION WIDTH 16.6 % (11.6-14.6)
[2019-06-27 05:21] LABS: CHLORIDE 110 mEq/L (98-107)
[2019-06-27] MEDS: BLOOD SUGAR DIAGNOSTIC STRIP TEST SCH ×4 (06:00→16:55)
[2019-06-27] MEDS: SODIUM CHLORIDE 0.9% INJ 3ML FLUSH IVF SCH ×3 (06:00→21:05)
[2019-06-27] MEDS: FAMOTIDINE 20MG/2ML VIAL IV SCH (09:04)
[2019-06-27] MEDS: THIAMINE HCL 100MG TABLET PO SCH (09:04)
[2019-06-27] MEDS: METOPROLOL TARTRATE 25MG TABLET PO SCH ×2 (09:04→21:05)
[2019-06-27] MEDS: FOLIC ACID 1MG TABLET PO SCH (09:04)
[2019-06-27] MEDS: LEVETIRACETAM 500 MG in SODIUM CHLORIDE 0.9% 100 ML IV SCH ×2 (09:12→21:05)
[2019-06-27 09:24] LABS: BG BASE EXCESS -1.7 mmol/L (-2.0-2.0); BG CARBOXYHEMOGLOBIN 0.2 % (0.5-1.5); BG DEOXYHEMOGLOBIN 1.7 % (0.0-5.0); BG FRACTION INSPIRED OXYGEN 40; BG HCO3 ACT 20.6 mmol/L (22.0-26.0); BG OXYGEN SATURATION 98.3 % (92.0-98.5); BG OXYHEMOGLOBIN 98.1 % (94.0-97.0); BG PCO2 26.7 mmHg (35.0-45.0); BG PH 7.506 (7.350-7.450); BG PO2 136.1 mmHg (75.0-100.0); BG SAMPLE SITE RIGHT RADIAL; BG TIDAL VOLUME(mL) 500 mL; BG TOTAL HEMOGLOBIN 9.1 g/dL (12.0-18.0); BG VENT MODE VENT - A/C; BG VENT RATE 16 set
[2019-06-27] MEDS ORDERED: KCL 20MEQ/100ML PREMIX 100 ML IV SCH ×2 (10:00→12:00)
[2019-06-27] MEDS: PANTOPRAZOLE SODIUM 40 MG/VIAL IV SCH (11:56)
[2019-06-27] MEDS ORDERED: LACTULOSE 300 ML in WATER FOR IRRIGATION,STERILE 700 ML PR SCH (12:00)
[2019-06-28] VITALS (60 sets, daily range): BP systolic 105–145; BP diastolic 61–97
[2019-06-28] MEDS: BLOOD SUGAR DIAGNOSTIC STRIP TEST SCH ×4 (00:21→18:32)
[2019-06-28] MEDS: LACTULOSE 20G/30ML UDC PO SCH ×6 (00:21→20:13)
[2019-06-28] MEDS: INSULIN LISPRO 100 UNITS/ML SUBCUT SCH ×4 (00:27→19:07)
[2019-06-28] MEDS: IPRATROPIUM/ALBUTEROL 0.5-3(2.5)MG/3ML NEB HHN SCH ×4 (02:13→20:35)
[2019-06-28 05:14] LABS: BASOPHILS % 0.5 % (0.0-2.0); EOSINOPHILS % 1.3 % (0.0-5.0); HEMATOCRIT. 27.7 % (36.0-48.0); HEMOGLOBIN. 9.4 g/dL (12.0-16.0); LYMPHOCYTES % 13.8 % (20.0-50.0); MEAN CORPUSCULAR HEMOGLOBIN 30.3 pg (28.0-32.0); MEAN CORPUSCULAR VOLUME 89.6 fL (81.0-99.0); MEAN PLATELET VOLUME 7.7 fl (7.4-10.4); MONOCYTES % 14.7 % (2.0-8.0); NEUTROPHILS % 69.7 % (40.0-76.0); PLATELET 218 x1000/uL (130-400); RED BLOOD CELL COUNT 3.09 mill/uL (4.2-5.4); RED CELL DISTRIBUTION WIDTH 16.4 % (11.6-14.6)
[2019-06-28 05:19] LABS: CHLORIDE 110 mEq/L (98-107)
[2019-06-28 08:32] LABS: BG BASE EXCESS -3.8 mmol/L (-2.0-2.0); BG CARBOXYHEMOGLOBIN 0.7 % (0.5-1.5); BG DEOXYHEMOGLOBIN 1.8 % (0.0-5.0); BG FRACTION INSPIRED OXYGEN 35; BG HCO3 ACT 18.4 mmol/L (22.0-26.0); BG METHEMOGLOBIN 0.3 % (0.0-1.5); BG OXYGEN SATURATION 98.2 % (92.0-98.5); BG OXYHEMOGLOBIN 97.2 % (94.0-97.0); BG PCO2 23.9 mmHg (35.0-45.0); BG PEEP (cmH2O) 0 cmH2O; BG PH 7.504 (7.350-7.450); BG PO2 120.3 mmHg (75.0-100.0); BG SAMPLE SITE RIGHT RADIAL; BG TIDAL VOLUME(mL) 500 mL; BG TOTAL HEMOGLOBIN 8.6 g/dL (12.0-18.0); BG VENT MODE VENT - A/C; BG VENT RATE 12 set
[2019-06-28] MEDS: LEVETIRACETAM 500 MG in SODIUM CHLORIDE 0.9% 100 ML IV SCH ×2 (08:47→21:23)
[2019-06-28] MEDS: DEXT 5%/0.45% NACL 1000ML 1,000 ML IV SCH ×2 (08:47→18:32)
[2019-06-28] MEDS: PROPOFOL 10MG/ML 100ML 100 ML IV PRN ×2 (08:50→20:43)
[2019-06-28] MEDS: FOLIC ACID 1MG TABLET PO SCH (08:51)
[2019-06-28] MEDS: METOPROLOL TARTRATE 25MG TABLET PO SCH ×2 (08:51→21:03)
[2019-06-28] MEDS: PANTOPRAZOLE SODIUM 40 MG/VIAL IV SCH (08:51)
[2019-06-28] MEDS: THIAMINE HCL 100MG TABLET PO SCH (08:51)
[2019-06-28] MEDS: ACETAMINOPHEN 325MG TABLET PO PRN (09:50)
[2019-06-28] MEDS ORDERED: POTASSIUM CHLORIDE INJ 40 MEQ in DEXT 5% WATER 250 ML IV NR (10:00)
[2019-06-28] MEDS: SODIUM CHLORIDE 0.9% INJ 3ML FLUSH IVF SCH ×2 (14:00→22:00)
[2019-06-28] MEDS ORDERED: LACTULOSE 300 ML in WATER FOR IRRIGATION,STERILE 700 ML IR SCH (22:00)
[2019-06-29] VITALS (60 sets, daily range): BP systolic 95–139; BP diastolic 57–97
[2019-06-29] MEDS: BLOOD SUGAR DIAGNOSTIC STRIP TEST SCH ×4 (00:09→18:00)
[2019-06-29] MEDS ORDERED: LACTULOSE 20G/30ML UDC ONE (00:17)
[2019-06-29] MEDS: INSULIN LISPRO 100 UNITS/ML SUBCUT SCH ×4 (00:17→18:01)
[2019-06-29] MEDS: LACTULOSE 20G/30ML UDC PO SCH ×5 (00:18→17:28)
[2019-06-29] MEDS: IPRATROPIUM/ALBUTEROL 0.5-3(2.5)MG/3ML NEB HHN SCH ×4 (01:40→20:30)
[2019-06-29] MEDS: DEXT 5%/0.45% NACL 1000ML 1,000 ML IV SCH ×2 (04:19→06:12)
[2019-06-29 05:35] LABS: HEMATOCRIT. 27.5 % (36.0-48.0); HEMOGLOBIN. 9.1 g/dL (12.0-16.0); MEAN CORPUSCULAR HEMOGLOBIN 30.1 pg (28.0-32.0); MEAN CORPUSCULAR VOLUME 90.6 fL (81.0-99.0); MEAN PLATELET VOLUME 8.1 fl (7.4-10.4); PLATELET 191 x1000/uL (130-400); RED BLOOD CELL COUNT 3.04 mill/uL (4.2-5.4); RED CELL DISTRIBUTION WIDTH 16.9 % (11.6-14.6)
[2019-06-29 05:43] LABS: CHLORIDE 109 mEq/L (98-107)
[2019-06-29] MEDS ORDERED: LACTULOSE 20G/30ML UDC PO SCH ×2 (06:00→10:00)
[2019-06-29] MEDS: SODIUM CHLORIDE 0.9% INJ 3ML FLUSH IVF SCH ×3 (06:26→21:13)
[2019-06-29] MEDS: LEVETIRACETAM 500 MG in SODIUM CHLORIDE 0.9% 100 ML IV SCH ×2 (08:26→21:12)
[2019-06-29] MEDS: FOLIC ACID 1MG TABLET PO SCH (08:27)
[2019-06-29] MEDS: ACETAMINOPHEN 325MG TABLET PO PRN ×2 (08:27→15:00)
[2019-06-29] MEDS: PROPOFOL 10MG/ML 100ML 100 ML IV PRN ×2 (08:27→20:30)
[2019-06-29] MEDS: METOPROLOL TARTRATE 25MG TABLET PO SCH ×2 (08:27→21:13)
[2019-06-29] MEDS: THIAMINE HCL 100MG TABLET PO SCH (08:27)
[2019-06-29] MEDS: PANTOPRAZOLE SODIUM 40 MG/VIAL IV SCH (08:28)
[2019-06-29 09:01] LABS: BG BASE EXCESS -3.1 mmol/L (-2.0-2.0); BG CARBOXYHEMOGLOBIN 0.5 % (0.5-1.5); BG FRACTION INSPIRED OXYGEN 35; BG HCO3 ACT 20.8 mmol/L (22.0-26.0); BG METHEMOGLOBIN 0.3 % (0.0-1.5); BG OXYHEMOGLOBIN 95.2 % (94.0-97.0); BG PCO2 32.6 mmHg (35.0-45.0); BG PH 7.422 (7.350-7.450); BG PO2 84.5 mmHg (75.0-100.0); BG SAMPLE SITE RIGHT RADIAL; BG TIDAL VOLUME(mL) 500 mL; BG TOTAL HEMOGLOBIN 9.6 g/dL (12.0-18.0); BG VENT MODE VENT - A/C; BG VENT RATE 12 set
[2019-06-29] MEDS ORDERED: KCL 20MEQ/100ML PREMIX 100 ML IV NR (09:30)
[2019-06-29 09:51] LABS: PLATELET ESTIMATE NORMAL
[2019-06-29] MEDS: OCTREOTIDE 1,000 MCG in SODIUM CHLORIDE 0.9% 100 ML IV SCH (11:28)
[2019-06-29 20:20] LABS: HEMATOCRIT 26.1 % (36.0-48.0); HEMOGLOBIN 8.6 g/dL (12.0-16.0)
[2019-06-30] VITALS (56 sets, daily range): BP systolic 99–132; BP diastolic 65–88
[2019-06-30] MEDS: BLOOD SUGAR DIAGNOSTIC STRIP TEST SCH ×5 (00:05→23:58)
[2019-06-30] MEDS: LACTULOSE 20G/30ML UDC PO SCH ×3 (00:10→16:30)
[2019-06-30] MEDS: INSULIN LISPRO 100 UNITS/ML SUBCUT SCH ×4 (00:11→17:55)
[2019-06-30] MEDS: DEXT 5%/0.45% NACL 1000ML 1,000 ML IV SCH ×3 (00:12→21:50)
[2019-06-30] MEDS: IPRATROPIUM/ALBUTEROL 0.5-3(2.5)MG/3ML NEB HHN SCH ×4 (01:48→20:01)
[2019-06-30 05:37] LABS: HEMATOCRIT. 26.7 % (36.0-48.0); HEMOGLOBIN. 8.8 g/dL (12.0-16.0); MEAN CORPUSCULAR HEMOGLOBIN 29.9 pg (28.0-32.0); MEAN CORPUSCULAR VOLUME 90.6 fL (81.0-99.0); MEAN PLATELET VOLUME 7.6 fl (7.4-10.4); PLATELET 192 x1000/uL (130-400); RED BLOOD CELL COUNT 2.95 mill/uL (4.2-5.4); RED CELL DISTRIBUTION WIDTH 15.9 % (11.6-14.6)
[2019-06-30 05:58] LABS: CHLORIDE 105 mEq/L (98-107)
[2019-06-30] MEDS: SODIUM CHLORIDE 0.9% INJ 3ML FLUSH IVF SCH ×3 (06:00→21:49)
[2019-06-30] MEDS: OCTREOTIDE 1,000 MCG in SODIUM CHLORIDE 0.9% 100 ML IV SCH (06:10)
[2019-06-30] MEDS: ACETAMINOPHEN 325MG TABLET PO PRN (06:16)
[2019-06-30 08:01] LABS: BG BASE EXCESS -4.8 mmol/L (-2.0-2.0); BG CARBOXYHEMOGLOBIN 0.6 % (0.5-1.5); BG DEOXYHEMOGLOBIN 3.5 % (0.0-5.0); BG FRACTION INSPIRED OXYGEN 35; BG HCO3 ACT 18.9 mmol/L (22.0-26.0); BG METHEMOGLOBIN 0.3 % (0.0-1.5); BG OXYGEN SATURATION 96.5 % (92.0-98.5); BG OXYHEMOGLOBIN 95.6 % (94.0-97.0); BG PCO2 29.4 mmHg (35.0-45.0); BG PH 7.425 (7.350-7.450); BG PO2 88.3 mmHg (75.0-100.0); BG SAMPLE SITE RIGHT RADIAL; BG TIDAL VOLUME(mL) 500 mL; BG TOTAL HEMOGLOBIN 8.9 g/dL (12.0-18.0); BG VENT MODE VENT - A/C; BG VENT RATE 14 set
[2019-06-30] MEDS: PANTOPRAZOLE SODIUM 40 MG/VIAL IV SCH (08:55)
[2019-06-30] MEDS: LEVETIRACETAM 500 MG in SODIUM CHLORIDE 0.9% 100 ML IV SCH (08:55)
[2019-06-30] MEDS: FOLIC ACID 1MG TABLET PO SCH (08:56)
[2019-06-30] MEDS: THIAMINE HCL 100MG TABLET PO SCH (08:56)
[2019-06-30] MEDS: METOPROLOL TARTRATE 25MG TABLET PO SCH ×2 (08:56→21:00)
[2019-06-30 09:21] LABS: PLATELET ESTIMATE NORMAL
[2019-06-30] MEDS ORDERED: POTASSIUM CHLORIDE INJ 40 MEQ in DEXT 5% WATER 250 ML IV NR (09:30)
[2019-06-30] MEDS: PROPOFOL 10MG/ML 100ML 100 ML IV PRN ×2 (10:26→21:49)
[2019-06-30 12:02] LABS: INR 1.2; PROTHROMBIN TIME 12.7 sec (9.6-11.0)
[2019-06-30] MEDS ORDERED: SIMETHICONE 40 MG/0.6 ML 30ML ONE (16:54)
[2019-06-30] MEDS ORDERED: MIDAZOLAM HCL 5 MG/5 ML VIAL ONE (16:54)
[2019-06-30] MEDS ORDERED: FENTANYL CITRATE/PF 50MCG/ML 2ML VIAL ONE (16:55)
[2019-06-30] MEDS ORDERED: LEVETIRACETAM 500MG/5ML CUP PO SCH (21:00)
[2019-06-30] MEDS: DIPHENHYDRAMINE 50MG/ML VIAL IV PRN (21:49)
[2019-07-01] VITALS (94 sets, daily range): BP systolic 92–143; BP diastolic 52–94
[2019-07-01] MEDS: LEVETIRACETAM 250 MG in SODIUM CHLORIDE 0.9% 100 ML IV SCH ×3 (00:06→21:34)
[2019-07-01] MEDS: OCTREOTIDE 1,000 MCG in SODIUM CHLORIDE 0.9% 100 ML IV SCH ×2 (01:30→23:15)
[2019-07-01] MEDS: IPRATROPIUM/ALBUTEROL 0.5-3(2.5)MG/3ML NEB HHN SCH ×4 (02:16→20:08)
[2019-07-01] MEDS: PROPOFOL 10MG/ML 100ML 100 ML IV PRN (04:53)
[2019-07-01 05:22] LABS: HEMOGLOBIN. 9.3 g/dL (12.0-16.0); MEAN CORPUSCULAR HEMOGLOBIN 29.8 pg (28.0-32.0); MEAN PLATELET VOLUME 7.7 fl (7.4-10.4); PLATELET 209 x1000/uL (130-400); RED BLOOD CELL COUNT 3.11 mill/uL (4.2-5.4); RED CELL DISTRIBUTION WIDTH 15.8 % (11.6-14.6)
[2019-07-01 05:26] LABS: CHLORIDE 106 mEq/L (98-107)
[2019-07-01] MEDS: SODIUM CHLORIDE 0.9% INJ 3ML FLUSH IVF SCH ×3 (05:36→21:31)
[2019-07-01] MEDS: BLOOD SUGAR DIAGNOSTIC STRIP TEST SCH ×4 (05:50→23:15)
[2019-07-01] MEDS: INSULIN LISPRO 100 UNITS/ML SUBCUT SCH ×4 (05:58→17:12)
[2019-07-01 07:41] LABS: BG BASE EXCESS -1.2 mmol/L (-2.0-2.0); BG CARBOXYHEMOGLOBIN 0.4 % (0.5-1.5); BG DEOXYHEMOGLOBIN 3.6 % (0.0-5.0); BG FRACTION INSPIRED OXYGEN 35; BG METHEMOGLOBIN 0.3 % (0.0-1.5); BG OXYGEN SATURATION 96.4 % (92.0-98.5); BG OXYHEMOGLOBIN 95.7 % (94.0-97.0); BG PH 7.469 (7.350-7.450); BG PO2 84.6 mmHg (75.0-100.0); BG SAMPLE SITE RIGHT RADIAL; BG TIDAL VOLUME(mL) 500 mL; BG VENT MODE VENT - A/C; BG VENT RATE 12 set
[2019-07-01] MEDS: METOPROLOL TARTRATE 25MG TABLET PO SCH (08:04)
[2019-07-01] MEDS: FOLIC ACID 1MG TABLET PO SCH (08:04)
[2019-07-01] MEDS: LACTULOSE 20G/30ML UDC PO SCH (08:04)
[2019-07-01] MEDS: THIAMINE HCL 100MG TABLET PO SCH (08:05)
[2019-07-01] MEDS: PANTOPRAZOLE SODIUM 40 MG/VIAL IV SCH (08:45)
[2019-07-01] MEDS ORDERED: LACTULOSE 300 ML in WATER FOR IRRIGATION,STERILE 700 ML IR SCH (09:30)
[2019-07-01] MEDS: DEXT 5%/0.45% NACL 1000ML 1,000 ML IV SCH ×2 (11:18→23:15)
[2019-07-01] MEDS: PIPERACILLIN/TAZOBACTAM 3.375 G in DEXT 5% WATER 100 ML IV SCH ×3 (11:18→23:15)
[2019-07-01 11:45] LABS: PLATELET ESTIMATE NORMAL
[2019-07-01] MEDS: LORAZEPAM 2MG/ML CPJ IV PRN (20:11)
[2019-07-02] VITALS (51 sets, daily range): BP systolic 91–135; BP diastolic 44–99
[2019-07-02] MEDS: IPRATROPIUM/ALBUTEROL 0.5-3(2.5)MG/3ML NEB HHN SCH ×4 (02:34→20:12)
[2019-07-02] MEDS: BLOOD SUGAR DIAGNOSTIC STRIP TEST SCH ×3 (05:19→17:24)
[2019-07-02] MEDS: LORAZEPAM 2MG/ML CPJ IV PRN (05:19)
[2019-07-02] MEDS: PIPERACILLIN/TAZOBACTAM 3.375 G in DEXT 5% WATER 100 ML IV SCH ×3 (05:19→17:38)
[2019-07-02] MEDS: SODIUM CHLORIDE 0.9% INJ 3ML FLUSH IVF SCH ×3 (05:19→22:14)
[2019-07-02 05:23] LABS: CHLORIDE 104 mEq/L (98-107)
[2019-07-02 05:24] LABS: HEMATOCRIT. 24.3 % (36.0-48.0); HEMOGLOBIN. 7.9 g/dL (12.0-16.0); MEAN CORPUSCULAR HEMOGLOBIN 29.8 pg (28.0-32.0); MEAN CORPUSCULAR VOLUME 92.1 fL (81.0-99.0); MEAN PLATELET VOLUME 7.5 fl (7.4-10.4); PLATELET 207 x1000/uL (130-400); RED BLOOD CELL COUNT 2.64 mill/uL (4.2-5.4); RED CELL DISTRIBUTION WIDTH 16.2 % (11.6-14.6)
[2019-07-02] MEDS ORDERED: INSULIN LISPRO 100 UNITS/ML SUBCUT SCH (06:00)
[2019-07-02] MEDS ORDERED: BLOOD SUGAR DIAGNOSTIC STRIP TEST SCH ×2 (06:00→12:50)
[2019-07-02] MEDS ORDERED: DEXTROSE 50% WATER 50ML SYRINGE IV PRN ×2 (06:30→09:15)
[2019-07-02] MEDS ORDERED: POTASSIUM CHLORIDE INJ 40 MEQ in DEXT 5% WATER 250 ML IV ONE (07:30)
[2019-07-02] MEDS: LEVETIRACETAM 250 MG in SODIUM CHLORIDE 0.9% 100 ML IV SCH ×2 (09:54→21:00)
[2019-07-02] MEDS: PANTOPRAZOLE SODIUM 40 MG/VIAL IV SCH (09:54)
[2019-07-02 10:10] LABS: BG BASE EXCESS -0.4 mmol/L (-2.0-2.0); BG CARBOXYHEMOGLOBIN 0.6 % (0.5-1.5); BG DEOXYHEMOGLOBIN 4.8 % (0.0-5.0); BG FRACTION INSPIRED OXYGEN 30; BG HCO3 ACT 23.6 mmol/L (22.0-26.0); BG OXYGEN SATURATION 95.2 % (92.0-98.5); BG OXYHEMOGLOBIN 94.6 % (94.0-97.0); BG PCO2 35.8 mmHg (35.0-45.0); BG PH 7.437 (7.350-7.450); BG PO2 80.2 mmHg (75.0-100.0); BG PRESSURE SUPPORT 8; BG SAMPLE SITE RIGHT RADIAL; BG TOTAL HEMOGLOBIN 8.9 g/dL (12.0-18.0); BG VENT MODE VENT - CPAP
[2019-07-02] MEDS ORDERED: OCTREOTIDE 1,000 MCG in SODIUM CHLORIDE 0.9% 100 ML IV SCH (11:00)
[2019-07-02 11:30] LABS: PLATELET ESTIMATE NORMAL
[2019-07-02] MEDS: LACTULOSE 300 ML in WATER FOR IRRIGATION,STERILE 700 ML IR SCH ×2 (12:00→17:38)
[2019-07-02] MEDS: DEXT 5%/0.45% NACL 1000ML 1,000 ML IV SCH (12:32)
[2019-07-02] MEDS: INSULIN LISPRO 100 UNITS/ML SUBCUT SCH ×4 (12:33→21:00)
[2019-07-02] MEDS ORDERED: METHYLPREDNISOLONE SOD SUCC 125 MG/2 ML VIAL IV NR (15:15)
[2019-07-02] MEDS ORDERED: TERBUTALINE SULFATE 1MG/ML VIAL SUBCUT NR (16:30)
[2019-07-02] MEDS: METHYLPREDNISOLONE SOD SUCC 125 MG/2 ML VIAL IV SCH (22:22)
[2019-07-03] VITALS (12 sets, daily range): BP systolic 102–141; BP diastolic 64–109
[2019-07-03] MEDS: DEXT 5%/0.45% NACL 1000ML 1,000 ML IV SCH ×2 (00:12→12:15)
[2019-07-03] MEDS: IPRATROPIUM/ALBUTEROL 0.5-3(2.5)MG/3ML NEB HHN SCH ×4 (03:15→20:51)
[2019-07-03 05:49] LABS: BASOPHILS % 0.2 % (0.0-2.0); HEMATOCRIT. 27.2 % (36.0-48.0); HEMOGLOBIN. 8.9 g/dL (12.0-16.0); MEAN CORPUSCULAR HEMOGLOBIN 29.3 pg (28.0-32.0); MEAN CORPUSCULAR VOLUME 89.4 fL (81.0-99.0); MEAN PLATELET VOLUME 7.3 fl (7.4-10.4); MONOCYTES % 2.5 % (2.0-8.0); NEUTROPHILS % 87.3 % (40.0-76.0); PLATELET 252 x1000/uL (130-400); RED BLOOD CELL COUNT 3.04 mill/uL (4.2-5.4); RED CELL DISTRIBUTION WIDTH 16.1 % (11.6-14.6)
[2019-07-03] MEDS: LACTULOSE 300 ML in WATER FOR IRRIGATION,STERILE 700 ML IR SCH ×2 (06:00→17:06)
[2019-07-03] MEDS: BLOOD SUGAR DIAGNOSTIC STRIP TEST SCH ×4 (06:00→16:55)
[2019-07-03] MEDS: METHYLPREDNISOLONE SOD SUCC 125 MG/2 ML VIAL IV SCH (06:00)
[2019-07-03] MEDS: PIPERACILLIN/TAZOBACTAM 3.375 G in DEXT 5% WATER 100 ML IV SCH ×5 (06:00→17:07)
[2019-07-03] MEDS: SODIUM CHLORIDE 0.9% INJ 3ML FLUSH IVF SCH ×2 (06:00→13:54)
[2019-07-03 06:22] LABS: CHLORIDE 106 mEq/L (98-107)
[2019-07-03] MEDS: PANTOPRAZOLE SODIUM 40 MG/VIAL IV SCH (08:35)
[2019-07-03] MEDS: LEVETIRACETAM 250 MG in SODIUM CHLORIDE 0.9% 100 ML IV SCH (08:35)
[2019-07-03] MEDS: INSULIN LISPRO 100 UNITS/ML SUBCUT SCH ×3 (08:37→16:55)
[2019-07-03] MEDS: PROPRANOLOL HCL 10MG TABLET PO SCH (09:49)
[2019-07-03] MEDS: METHYLPREDNISOLONE SOD SUCC 40 MG/ML VIAL IV SCH (13:51)
[2019-07-03] MEDS: MORPHINE SULFATE 2 MG/ML CPJ (NOT FOR IM USE) IV PRN (13:54)
[2019-07-04] VITALS: BP 118/75
[2019-07-04] MEDS: IPRATROPIUM/ALBUTEROL 0.5-3(2.5)MG/3ML NEB HHN SCH ×4 (01:33→20:36)
[2019-07-04] MEDS: BLOOD SUGAR DIAGNOSTIC STRIP TEST SCH ×4 (06:00→23:18)
[2019-07-04] MEDS: METHYLPREDNISOLONE SOD SUCC 40 MG/ML VIAL IV SCH ×2 (06:55→13:00)
[2019-07-04] MEDS: SODIUM CHLORIDE 0.9% INJ 3ML FLUSH IVF SCH ×3 (06:56→21:40)
[2019-07-04] MEDS: PIPERACILLIN/TAZOBACTAM 3.375 G in DEXT 5% WATER 100 ML IV SCH ×4 (06:56→23:19)
[2019-07-04 07:13] LABS: CHLORIDE 107 mEq/L (98-107)
[2019-07-04 07:17] LABS: BASOPHILS % 0.2 % (0.0-2.0); HEMATOCRIT. 27.7 % (36.0-48.0); HEMOGLOBIN. 9.3 g/dL (12.0-16.0); LYMPHOCYTES % 10.7 % (20.0-50.0); MEAN CORPUSCULAR HEMOGLOBIN 30.1 pg (28.0-32.0); MEAN CORPUSCULAR VOLUME 89.9 fL (81.0-99.0); MEAN PLATELET VOLUME 7.2 fl (7.4-10.4); MONOCYTES % 6.8 % (2.0-8.0); NEUTROPHILS % 82.3 % (40.0-76.0); PLATELET 312 x1000/uL (130-400); RED BLOOD CELL COUNT 3.08 mill/uL (4.2-5.4); RED CELL DISTRIBUTION WIDTH 16.2 % (11.6-14.6)
[2019-07-04 08:00] VITALS: BP 130/79
[2019-07-04] MEDS: PROPRANOLOL HCL 10MG TABLET PO SCH ×2 (08:32→21:00)
[2019-07-04] MEDS: LEVETIRACETAM 250 MG in SODIUM CHLORIDE 0.9% 100 ML IV SCH ×2 (08:46→21:38)
[2019-07-04] MEDS: PANTOPRAZOLE SODIUM 40 MG/VIAL IV SCH (08:46)
[2019-07-04] MEDS: INSULIN LISPRO 100 UNITS/ML SUBCUT SCH ×4 (08:53→21:32)
[2019-07-04 12:00] VITALS: BP 117/76
[2019-07-04] MEDS: MORPHINE SULFATE 2 MG/ML CPJ (NOT FOR IM USE) IV PRN (12:51)
[2019-07-04] MEDS: DEXT 5%/0.45% NACL 1000ML 1,000 ML IV SCH (13:00)
[2019-07-04 16:00] VITALS: BP 118/76
[2019-07-04] MEDS ORDERED: LACTULOSE 300 ML in WATER FOR IRRIGATION,STERILE 700 ML IR SCH (18:00)
[2019-07-04 20:00] VITALS: BP 100/69
[2019-07-04] MEDS: LACTULOSE 20G/30ML UDC PO SCH (21:30)
[2019-07-04] MEDS: INSULIN GLARGINE UD 100 UNITS/ML SYR SUBCUT SCH ×2 (21:33→21:51)
[2019-07-04] MEDS: LORAZEPAM 2MG/ML CPJ IV PRN (21:38)
[2019-07-05 00:20] VITALS: BP 123/76
[2019-07-05] MEDS: DEXT 5%/0.45% NACL 1000ML 1,000 ML IV SCH (02:05)
[2019-07-05 04:00] VITALS: BP 141/90
[2019-07-05] MEDS: LACTULOSE 20G/30ML UDC PO SCH ×3 (05:00→21:00)
[2019-07-05] MEDS: PIPERACILLIN/TAZOBACTAM 3.375 G in DEXT 5% WATER 100 ML IV SCH ×4 (05:00→23:37)
[2019-07-05] MEDS: SODIUM CHLORIDE 0.9% INJ 3ML FLUSH IVF SCH ×3 (05:01→21:04)
[2019-07-05 05:14] VITALS: BP 141/90
[2019-07-05] MEDS: BLOOD SUGAR DIAGNOSTIC STRIP TEST SCH ×4 (06:06→23:45)
[2019-07-05] MEDS: INSULIN LISPRO 100 UNITS/ML SUBCUT SCH ×4 (06:22→21:02)
[2019-07-05 06:41] LABS: BASOPHILS % 0.2 % (0.0-2.0); EOSINOPHILS % 0.1 % (0.0-5.0); HEMATOCRIT. 28.8 % (36.0-48.0); HEMOGLOBIN. 9.2 g/dL (12.0-16.0); LYMPHOCYTES % 23.8 % (20.0-50.0); MEAN CORPUSCULAR HEMOGLOBIN 28.5 pg (28.0-32.0); MEAN PLATELET VOLUME 6.8 fl (7.4-10.4); MONOCYTES % 12.2 % (2.0-8.0); NEUTROPHILS % 63.7 % (40.0-76.0); PLATELET 307 x1000/uL (130-400); RED BLOOD CELL COUNT 3.24 mill/uL (4.2-5.4); RED CELL DISTRIBUTION WIDTH 15.7 % (11.6-14.6)
[2019-07-05 07:23] LABS: VITAMIN B12 SERUM >2000 pg/mL pg/mL (211-911)
[2019-07-05 07:48] LABS: CHLORIDE 106 mEq/L (98-107)
[2019-07-05 08:00] VITALS: BP 127/77
[2019-07-05] MEDS ORDERED: METHYLPREDNISOLONE SOD SUCC 40 MG/ML VIAL IV SCH (09:00)
[2019-07-05] MEDS: PANTOPRAZOLE SODIUM 40 MG/VIAL IV SCH (09:30)
[2019-07-05] MEDS: PROPRANOLOL HCL 10MG TABLET PO SCH ×2 (09:30→20:52)
[2019-07-05] MEDS: LEVETIRACETAM 250 MG in SODIUM CHLORIDE 0.9% 100 ML IV SCH ×2 (09:30→21:42)
[2019-07-05] MEDS: IPRATROPIUM/ALBUTEROL 0.5-3(2.5)MG/3ML NEB HHN SCH ×2 (10:13→16:33)
[2019-07-05] MEDS: MORPHINE SULFATE 2 MG/ML CPJ (NOT FOR IM USE) IV PRN (14:10)
[2019-07-05] MEDS ORDERED: POTASSIUM CHLORIDE 20MEQ TABLET SR PO NR (14:45)
[2019-07-05 16:00] VITALS: BP 125/79
[2019-07-05 20:00] VITALS: BP 106/70
[2019-07-05] MEDS: INSULIN GLARGINE UD 100 UNITS/ML SYR SUBCUT SCH (21:43)
[2019-07-05] MEDS: LORAZEPAM 2MG/ML CPJ IV PRN (21:43)
[2019-07-06] VITALS: BP 122/78
[2019-07-06 04:00] VITALS: BP 127/80
[2019-07-06] MEDS: LACTULOSE 20G/30ML UDC PO SCH ×3 (05:44→22:00)
[2019-07-06] MEDS: PIPERACILLIN/TAZOBACTAM 3.375 G in DEXT 5% WATER 100 ML IV SCH ×4 (05:44→23:06)
[2019-07-06] MEDS: SODIUM CHLORIDE 0.9% INJ 3ML FLUSH IVF SCH ×3 (05:44→22:26)
[2019-07-06] MEDS: BLOOD SUGAR DIAGNOSTIC STRIP TEST SCH ×4 (05:52→21:00)
[2019-07-06 06:41] LABS: CHLORIDE 106 mEq/L (98-107)
[2019-07-06] MEDS: INSULIN LISPRO 100 UNITS/ML SUBCUT SCH ×4 (06:44→21:00)
[2019-07-06] MEDS: PREDNISONE 20MG TABLET PO SCH (07:49)
[2019-07-06] MEDS: PROPRANOLOL HCL 10MG TABLET PO SCH ×2 (07:49→22:24)
[2019-07-06] MEDS: PANTOPRAZOLE SODIUM 40 MG/VIAL IV SCH (07:50)
[2019-07-06] MEDS: IPRATROPIUM/ALBUTEROL 0.5-3(2.5)MG/3ML NEB HHN SCH ×2 (09:17→17:23)
[2019-07-06] MEDS: LEVETIRACETAM 250 MG in SODIUM CHLORIDE 0.9% 100 ML IV SCH ×2 (10:17→22:22)
[2019-07-06] MEDS: POTASSIUM CHLORIDE 20MEQ TABLET SR PO SCH ×2 (14:36→16:43)
[2019-07-06] MEDS: ACETAMINOPHEN 325MG TABLET PO PRN (14:42)
[2019-07-06] MEDS: GABAPENTIN 300MG CAPSULE PO SCH ×2 (15:37→22:24)
[2019-07-06] MEDS: ARIPIPRAZOLE 10MG TABLET PO SCH (15:37)
[2019-07-06] MEDS: BACLOFEN 10MG TABLET PO SCH (16:43)
[2019-07-06 20:00] VITALS: BP 113/76
[2019-07-06] MEDS: INSULIN GLARGINE UD 100 UNITS/ML SYR SUBCUT SCH (22:27)
[2019-07-06] MEDS: DIPHENHYDRAMINE 50MG/ML VIAL IV PRN (23:06)
[2019-07-07] VITALS: BP 118/67
[2019-07-07 04:00] VITALS: BP 113/65
[2019-07-07] MEDS: BLOOD SUGAR DIAGNOSTIC STRIP TEST SCH ×4 (06:43→21:53)
[2019-07-07] MEDS: LACTULOSE 20G/30ML UDC PO SCH ×3 (06:51→21:53)
[2019-07-07] MEDS: SODIUM CHLORIDE 0.9% INJ 3ML FLUSH IVF SCH ×3 (06:51→21:53)
[2019-07-07] MEDS: GABAPENTIN 300MG CAPSULE PO SCH ×3 (06:51→21:52)
[2019-07-07] MEDS: PIPERACILLIN/TAZOBACTAM 3.375 G in DEXT 5% WATER 100 ML IV SCH ×3 (06:52→18:16)
[2019-07-07 07:13] LABS: CHLORIDE 111 mEq/L (98-107)
[2019-07-07] MEDS: INSULIN LISPRO 100 UNITS/ML SUBCUT SCH ×4 (07:19→21:43)
[2019-07-07 08:00] VITALS: BP 109/72
[2019-07-07] MEDS: IPRATROPIUM/ALBUTEROL 0.5-3(2.5)MG/3ML NEB HHN SCH ×3 (08:05→20:59)
[2019-07-07] MEDS: PROPRANOLOL HCL 10MG TABLET PO SCH ×2 (09:00→21:40)
[2019-07-07] MEDS: PANTOPRAZOLE SODIUM 40 MG/VIAL IV SCH (09:46)
[2019-07-07] MEDS: BACLOFEN 10MG TABLET PO SCH ×3 (09:46→18:16)
[2019-07-07] MEDS: ARIPIPRAZOLE 10MG TABLET PO SCH (09:46)
[2019-07-07] MEDS: LEVETIRACETAM 250 MG in SODIUM CHLORIDE 0.9% 100 ML IV SCH ×2 (09:46→21:51)
[2019-07-07] MEDS: PREDNISONE 20MG TABLET PO SCH (09:47)
[2019-07-07] MEDS ORDERED: POTASSIUM CHLORIDE INJ 40 MEQ in DEXT 5% WATER 250 ML IV NR (10:00)
[2019-07-07 12:11] VITALS: BP 105/73
[2019-07-07 16:25] VITALS: BP 114/71
[2019-07-07 20:00] VITALS: BP 118/69
[2019-07-07] MEDS: DIPHENHYDRAMINE 50MG/ML VIAL IV PRN (21:51)
[2019-07-07] MEDS: INSULIN GLARGINE UD 100 UNITS/ML SYR SUBCUT SCH (22:08)
[2019-07-08] VITALS: BP 108/70
[2019-07-08] MEDS: PIPERACILLIN/TAZOBACTAM 3.375 G in DEXT 5% WATER 100 ML IV SCH ×3 (00:42→12:45)
[2019-07-08 04:00] VITALS: BP 99/62
[2019-07-08] MEDS: GABAPENTIN 300MG CAPSULE PO SCH ×3 (05:42→21:32)
[2019-07-08] MEDS: LACTULOSE 20G/30ML UDC PO SCH ×3 (05:42→21:32)
[2019-07-08] MEDS: SODIUM CHLORIDE 0.9% INJ 3ML FLUSH IVF SCH ×3 (05:43→21:33)
[2019-07-08] MEDS: INSULIN LISPRO 100 UNITS/ML SUBCUT SCH ×4 (06:35→22:17)
[2019-07-08] MEDS: BLOOD SUGAR DIAGNOSTIC STRIP TEST SCH ×4 (06:35→21:00)
[2019-07-08 07:59] LABS: BASOPHILS % 0.2 % (0.0-2.0); EOSINOPHILS % 4.3 % (0.0-5.0); HEMATOCRIT. 26.5 % (36.0-48.0); HEMOGLOBIN. 8.6 g/dL (12.0-16.0); LYMPHOCYTES % 28.3 % (20.0-50.0); MEAN CORPUSCULAR HEMOGLOBIN 28.5 pg (28.0-32.0); MEAN CORPUSCULAR VOLUME 87.8 fL (81.0-99.0); MEAN PLATELET VOLUME 7.4 fl (7.4-10.4); MONOCYTES % 6.9 % (2.0-8.0); NEUTROPHILS % 60.3 % (40.0-76.0); PLATELET 253 x1000/uL (130-400); RED BLOOD CELL COUNT 3.02 mill/uL (4.2-5.4); RED CELL DISTRIBUTION WIDTH 15.7 % (11.6-14.6)
[2019-07-08 08:00] VITALS: BP 119/76
[2019-07-08 08:39] LABS: CHLORIDE 109 mEq/L (98-107)
[2019-07-08] MEDS: PANTOPRAZOLE SODIUM 40 MG/VIAL IV SCH (08:51)
[2019-07-08] MEDS: LEVETIRACETAM 250 MG in SODIUM CHLORIDE 0.9% 100 ML IV SCH ×2 (08:51→21:32)
[2019-07-08] MEDS: PREDNISONE 20MG TABLET PO SCH (08:53)
[2019-07-08] MEDS: ARIPIPRAZOLE 10MG TABLET PO SCH (08:53)
[2019-07-08] MEDS: BACLOFEN 10MG TABLET PO SCH ×3 (08:53→17:37)
[2019-07-08] MEDS: PROPRANOLOL HCL 10MG TABLET PO SCH ×2 (08:54→20:29)
[2019-07-08] MEDS: IPRATROPIUM/ALBUTEROL 0.5-3(2.5)MG/3ML NEB HHN SCH ×2 (10:16→15:35)
[2019-07-08 12:00] VITALS: BP_SYST 106
[2019-07-08] MEDS ORDERED: POTASSIUM CHLORIDE 20MEQ TABLET SR PO SCH (12:00)
[2019-07-08] MEDS: ACETAMINOPHEN 325MG TABLET PO PRN (12:45)
[2019-07-08 16:00] VITALS: BP 104/61
[2019-07-08 20:00] VITALS: BP 107/67
[2019-07-08] MEDS: DIPHENHYDRAMINE 50MG/ML VIAL IV PRN (22:12)
[2019-07-08] MEDS: INSULIN GLARGINE UD 100 UNITS/ML SYR SUBCUT SCH (22:17)
[2019-07-09] VITALS: BP 100/57
[2019-07-09 04:00] VITALS: BP 116/74
[2019-07-09] MEDS: GABAPENTIN 300MG CAPSULE PO SCH (06:04)
[2019-07-09] MEDS: LACTULOSE 20G/30ML UDC PO SCH (06:04)
[2019-07-09] MEDS: SODIUM CHLORIDE 0.9% INJ 3ML FLUSH IVF SCH (06:07)
[2019-07-09] MEDS: INSULIN LISPRO 100 UNITS/ML SUBCUT SCH (07:40)
[2019-07-09 08:00] VITALS: BP 115/76
[2019-07-09] MEDS: BLOOD SUGAR DIAGNOSTIC STRIP TEST SCH (08:07)
[2019-07-09] MEDS: BACLOFEN 10MG TABLET PO SCH (08:09)
[2019-07-09] MEDS: PROPRANOLOL HCL 10MG TABLET PO SCH (08:09)
[2019-07-09] MEDS: PANTOPRAZOLE SODIUM 40 MG/VIAL IV SCH (08:09)
[2019-07-09] MEDS: LEVETIRACETAM 250 MG in SODIUM CHLORIDE 0.9% 100 ML IV SCH (08:10)
[2019-07-09] MEDS: ARIPIPRAZOLE 10MG TABLET PO SCH (08:10)
[2019-07-09] MEDS: IPRATROPIUM/ALBUTEROL 0.5-3(2.5)MG/3ML NEB HHN SCH (10:27)
[2019-07-09 10:47] VITALS: BP 115/76
== END 2019-07-09 12:45 | disposition home health service (06) | DRG 720 ==
LOC: ER 21:13 → 5WST 06-23 01:20 → ENRESERV 06-23 01:42 → 5EST 06-25 10:10 → CVICU 06-26 06:05 → 8WST 07-03 11:25
PROVIDERS: ADMIT Internal Medicine; ATTEND Internal Medicine
PROC: 30233N1 Transfusion of Nonautologous Red Blood Cells into Peripheral Vein, Percutaneous Approach (ICD-10-PCS; 2019-06-23)
PROC: 5A1955Z Respiratory Ventilation, Greater than 96 Consecutive Hours (ICD-10-PCS; 2019-06-26)
PROC: 02H633Z Insertion of Infusion Device into Right Atrium, Percutaneous Approach (ICD-10-PCS; 2019-06-26)
PROC: B244ZZZ Ultrasonography of Right Heart (ICD-10-PCS; 2019-06-26)
PROC: 0BH17EZ Insertion of Endotracheal Airway into Trachea, Via Natural or Artificial Opening (ICD-10-PCS; 2019-06-26)
PROC: 06L38CZ Occlusion of Esophageal Vein with Extraluminal Device, Via Natural or Artificial Opening Endoscopic (ICD-10-PCS; principal; 2019-06-30)
DX: A41.9 Sepsis, unspecified organism (principal); J96.01 Acute respiratory failure with hypoxia; J69.0 Pneumonitis due to inhalation of food and vomit; E43 Unspecified severe protein-calorie malnutrition; Z99.11 Dependence on respirator [ventilator] status; K76.6 Portal hypertension; I85.11 Secondary esophageal varices with bleeding; E87.5 Hyperkalemia; E11.40 Type 2 diabetes mellitus with diabetic neuropathy, unspecified; K70.40 Alcoholic hepatic failure without coma; D63.8 Anemia in other chronic diseases classified elsewhere; K21.9 Gastro-esophageal reflux disease without esophagitis; E53.8 Deficiency of other specified B group vitamins; I10 Essential (primary) hypertension; K62.3 Rectal prolapse; K64.8 Other hemorrhoids; E87.6 Hypokalemia; F10.20 Alcohol dependence, uncomplicated; G40.909 Epilepsy, unspecified, not intractable, without status epilepticus; G31.84 Mild cognitive impairment of uncertain or unknown etiology; G62.1 Alcoholic polyneuropathy; M10.9 Gout, unspecified; K57.90 Diverticulosis of intestine, part unspecified, without perforation or abscess without bleeding; D50.9 Iron deficiency anemia, unspecified; K70.31 Alcoholic cirrhosis of liver with ascites; K76.0 Fatty (change of) liver, not elsewhere classified; M21.372 Foot drop, left foot; M21.371 Foot drop, right foot; Z78.1 Physical restraint status; Z90.49 Acquired absence of other specified parts of digestive tract; Z98.84 Bariatric surgery status; Z68.1 Body mass index [BMI] 19.9 or less, adult; Z79.84 Long term (current) use of oral hypoglycemic drugs; Z79.82 Long term (current) use of aspirin; Z79.899 Other long term (current) drug therapy; Z88.8 Allergy status to other drugs, medicaments and biological substances; Z82.3 Family history of stroke
CPT/HCPCS: 31500; 36415; 36600; 71045; 72128; 72131; 74018; 76937; 80048; 80076; 80305; 81003; 82105; 82140; 82248; 82375; 82550; 82553; 82607; 82746; 82805; 82962; 83540; 83550; 83735; 84100; 84450; 84460; 84478; 84484; 84703; 85014; 85018; 85027; 86140; 86850; 86900; 86920; 87070; 92610; 93005; 93970; 94002; 94003; 94640; 97112; 97116; 97162; 97167; 97530; 97535; 99291; C1725; C9113; J1200; J1815; J1953; J2060; J2250; J2270; J2354; J2405; J2543; J2704; J2920; J2930; J3010; J3105; J3475; J3480; J3490; J7030; J7040; J7042; J7050; J7060; J7512; J7620; P9016; A4315

== ENCOUNTER 2019-09-19 14:13 | Emergency (ER) | payer MEDICAID ==
[~2019-09-19] VITALS: Ht 160 cm; Wt 68.0 kg
[~2019-09-19 14:13] MED LIST changes: +METF-416 MT; -METF500T3 PO; -[UNRECOGNIZED DRUG - OTHER] PO; -[UNRECOGNIZED DRUG - OTHER] PO
[2019-09-19] MEDS ORDERED: SODIUM CHLORIDE 0.9% 1,000 ML IV ONE (22:09)
[2019-09-19 22:54] LABS: CHLORIDE 100 mEq/L (98-107)
[2019-09-19 22:55] LABS: BASOPHILS % 0.8 % (0.0-2.0); EOSINOPHILS % 2.5 % (0.0-5.0); HEMATOCRIT. 35.5 % (36.0-48.0); HEMOGLOBIN. 11.2 g/dL (12.0-16.0); LYMPHOCYTES % 39.7 % (20.0-50.0); MEAN CORPUSCULAR VOLUME 79.1 fL (81.0-99.0); MEAN PLATELET VOLUME 7.7 fl (7.4-10.4); MONOCYTES % 10.7 % (2.0-8.0); NEUTROPHILS % 46.3 % (40.0-76.0); PLATELET 194 x1000/uL (130-400)
[2019-09-20 00:01] LABS: CLARITY URINE CLEAR (CLEAR); COLOR URINE YELLOW (YELLOW); KETONES URINE NEGATIVE (NEGATIVE); LEUKOCYTE ESTERASE URINE NEGATIVE (NEGATIVE); NITRITE URINE NEGATIVE (NEGATIVE); OCCULT BLOOD URINE TRACE (NEGATIVE); PH URINE 8.5 (4.5-8.0); PROTEIN URINE NEGATIVE (NEGATIVE); SPECIFIC GRAVITY URINE 1.014 (1.005-1.030)
[2019-09-20 01:35] VITALS: BP 125/85
== END 2019-09-20 01:37 | disposition home or self-care (01) ==
LOC: ER 14:13
DX: E11.65 Type 2 diabetes mellitus with hyperglycemia (principal); F41.9 Anxiety disorder, unspecified; F32.9 Major depressive disorder, single episode, unspecified; E78.00 Pure hypercholesterolemia, unspecified; I10 Essential (primary) hypertension; Z79.82 Long term (current) use of aspirin; Z79.899 Other long term (current) drug therapy; Z88.8 Allergy status to other drugs, medicaments and biological substances
CPT/HCPCS: 36415; 71045; 80053; 81003; 81025; 82962; 83880; 84484; 85025; 93005; 96360; 99284; J7030

== ENCOUNTER → 2019-11-29 | Day surgery (SDC) | payer MEDICAID ==
[~2019-11-29] VITALS: Ht 160 cm; Wt 70.3 kg
[~2019-11-29] MED LIST changes: -ASPI-1158 PO; +DAPA10TA PO; +LACTATED RINGERS 1,000 ML IV SCH; +METO25TA6 PO; +PROP10TA10 PO; +SITA100T11 PO; +SODIUM CHLORIDE 0.9% 1,000 ML IV SCH
[2019-11-29 09:36] LABS: UCG SCREEN NEGATIVE
== END | disposition home or self-care (01) ==
LOC: OR 09:00
PROVIDERS: ATTEND Internal Medicine Gastroenterology
DX: I85.01 Esophageal varices with bleeding (principal); K70.30 Alcoholic cirrhosis of liver without ascites; E78.00 Pure hypercholesterolemia, unspecified; I10 Essential (primary) hypertension; E11.9 Type 2 diabetes mellitus without complications; Z98.84 Bariatric surgery status; Z79.899 Other long term (current) drug therapy; Z98.890 Other specified postprocedural states; Z88.8 Allergy status to other drugs, medicaments and biological substances
CPT/HCPCS: 81025; 82962